=== PATIENT | female | born 1995 | race Caucasian/White ===

== ENCOUNTER 2020-12-22 14:12 | Emergency (ER) | payer SELFPAY ==
[2020-12-22 15:31] LABS: Absolute Lymphocytes (CBC) 2.4 K/uL (0.7-4.9); Basophils % 0.3 % (0-1.3); Hematocrit 41.7 % (36.0-45.0); Lymphocytes % 31.7 % (15.3-44.8); MPV 9.2 fL (7.6-11.3); RBC Red Blood Cell Count 4.66 M/uL (3.86-4.86)
--- NOTE | 2020-12-22 16:05 | RAD REPORT ---
EXAM DESCRIPTION: US - Transvaginal Study Probe - 12/22/2020 3:05 pm CLINICAL HISTORY: VAGINAL BLEEDING Pelvic pain. COMPARISON: No comparisons FINDINGS: The uterus measures 8.4 cm in long axis. The left ovary measures 4.7 x 1.9 x 2.6 cm with v olume of 12.4 cc. The right ovary was visualized but no measurements were obtained. Both ovaries demo nstrate vascular flow. IUD noted in the uterus. IMPRESSION: IUD in the uterus. Bilateral ovarian blood flow is present.
--- NOTE | 2020-12-22 16:08 | ER ---
Nurse's Notes [facility] Name: Guillermina Marie Age: 25 yrs Sex: Female : 1995 Arrival Date: 12/22/2020 Time: 14:16 Bed 23 Private MD: Diagnosis: Abnormal uterine and vaginal bleeding, unspecified Presentation: 12/22 14:26 Chief complaint: Patient states: IUD placed two weeks ago and for about a week now has vg1 had vaginal bleeding, dark red in color. Also states passing blood clots 'the size of a quarter'. Denies NVD. Pt states has been feeling tired as well. Coronavirus screen: Vaccine status: Patient reports being unvaccinated. Client denies travel out of the [place] in the last 14 days. Ebola Screen: Patient negative for fever greater than or equal to 101.5 degrees Fahrenheit, and additional compatible Ebola Virus Disease symptoms. Initial Sepsis Screen: Does the patient meet any 2 criteria? No. Patient's initial sepsis screen is negative. Does the patient have a suspected source of infection? No. Patient's initial sepsis screen is negative. Risk Assessment: Do you want to hurt yourself or someone else? Patient reports no desire to harm self or others. Onset of symptoms was December 08, 2020. 14:26 Method Of Arrival: Ambulatory vg1 14:26 Acuity: NADIRA 3 vg1 Triage Assessment: 14:30 General: Appears in no apparent distress. uncomfortable, Behavior is calm, cooperative. vg1 Pain: Complains of pain in abdomen. : Reports vaginal bleeding that is with clots, heavy flow dark red. 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 - Social history:: Smoking status: Patient denies any tobacco usage or history of. Screenin:21 Abuse screen: Denies threats or abuse. Denies injuries from another. Nutritional ld1 screening: No deficits noted. Tuberculosis screening: No symptoms or risk factors identified. Fall Risk None identified. Assessment: 14:59 Reassessment: Pt was called to go back to room; pt not in lobby. vg1 15:21 General: Appears in no apparent distress. comfortable, Behavior is calm, cooperative, ld1 appropriate for age. Pain: Denies pain. Neuro: Level of Consciousness is awake, alert, obeys commands, Oriented to person, place, time, situation. Cardiovascular: Capillary refill < 3 seconds Patient's skin is warm and dry. Respiratory: Airway is patent Respiratory effort is even, unlabored, Respiratory pattern is regular, symmetrical. GI: Abdomen is round non-distended. : Reports vaginal bleeding that is with clots, Pt reports IUD placement, expelled a clot the size of a quarter today. EENT: No signs and/or symptoms were reported regarding the EENT system. Derm: No signs and/or symptoms reported regarding the dermatologic system. Musculoskeletal: No signs and/or symptoms reported regarding the musculoskeletal system. 16:47 Reassessment: Patient appears in no apparent distress at this time. Patient and/or iw family updated on plan of care and expected duration. Pain level reassessed. Patient is alert, oriented x 3, equal unlabored respirations, skin warm/dry/pink. Vital Signs: 14:26 BP 117 / 73; Pulse 79; Resp 16; Temp 98.6; Pulse Ox 100% ; Weight 122.47 kg; Height 5 vg1 ft. 2 in. (157.48 cm); Pain 5/10; 15:21 BP 122 / 75; Pulse 82; Resp 17; Pulse Ox 100% on R/A; Pain 0/10; ld1 14:26 Body Mass Index 49.38 (122.47 kg, 157.48 cm) vg1 ED Course: 14:16 Patient arrived in ED. mr 14:22 [facility]aud [facility]C [facility]. kb 14:22 Lew Cisneros MD is Attending Physician. kb 14:29 Triage completed. vg1 14:30 Arm band placed on. vg1 15:05 Transvaginal Study Probe In Process Unspecified. EDMS 15:21 Patient has correct armband on for positive identification. Bed in low position. Call ld1 light in reach. Side rails up X2. Pulse ox on. NIBP on. Door closed. Noise minimized. Warm blanket given. 15:21 CBC with Diff Sent. ld1 15:21 No provider procedures requiring assistance completed. Inserted saline lock: 20 gauge ld1 in right antecubital area, using aseptic technique. Blood collected. 16:48 IV discontinued, intact, bleeding controlled, No redness/swelling at site. Pressure iw dressing applied. Administered Medications: No medications were administered Outcome: 16:08 Discharge ordered by . vaughn 16:48 Discharged to home ambulatory. iw 16:48 Condition: good 16:48 Discharge instructions given to patient, Instructed on discharge instructions, follow up and referral plans. Demonstrated understanding of instructions, follow-up care. 16:48 Patient left the ED. iw Signatures: Dispatcher [employer] EDMS Jade Michaud, LUZ ELENA-C MUD JACK NOZZLE WORKER-Cheyanne Marshall Radha Lovelace, RN RN iw Christen Lay RN RN vg1 Daya Jurado, CORY RN ld1 Corrections: (The following items were deleted from the chart) 14:30 14:29 Allergies: No Known Allergies; vg1 vg1 14:30 14:29 PSHx: None; vg1 vg1
--- NOTE | 2020-12-22 16:08 | EDPHYS ---
Physician Documentation [facility] Name: Guillermina Marie Age: 25 yrs Sex: Female : 1995 Arrival Date: 12/22/2020 Time: 14:16 Bed 23 Private MD: PAULETTE Physician Lew Cisneros HPI: 12/22 15:39 This 25 yrs old Female presents to ER via Ambulatory with complaints of kb Vaginal Bleed -blood clots. 15:39 The patient presents with vaginal bleeding that is moderate, with clots. Onset: The kb symptoms/episode began/occurred 1 week(s) ago. Modifying factors: The symptoms are alleviated by nothing, the symptoms are aggravated by nothing. Associated signs and symptoms: Pertinent positives: vaginal bleeding. Severity of symptoms: At their worst the symptoms were moderate, in the emergency department the symptoms are unchanged. The patient's method of control includes IUD. The patient has not experienced similar symptoms in the past. The patient has been recently seen by a physician:. States she has had an UID in for 2 weeks, started bleeding a week ago. 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 . 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 - Social history:: Smoking status: Patient denies any tobacco usage or history of. ROS: 15:39 Constitutional: Negative for fever, chills, and weight loss. kb 15:39 : Positive for vaginal bleeding. 15:39 All other systems are negative. Exam: 15:39 Constitutional: This is a well developed, well nourished patient who is awake, alert, kb and in no acute distress. Head/Face: Normocephalic, atraumatic. ENT: Moist Mucous membranes Respiratory: Respirations even and unlabored. No increased work of breathing, no retractions or nasal flaring. Abdomen/GI: Soft, non-tender. No distention Skin: Warm, dry with normal turgor. Normal color. MS/ Extremity: Pulses equal, no cyanosis. Neurovascular intact. Full, normal range of motion. Neuro: Awake and alert, GCS 15, oriented to person, place, time, and situation. Moves all extremities. Normal gait. Psych: Awake, alert, with orientation to person, place and time. Behavior, mood, and affect are within normal limits. Vital Signs: 14:26 BP 117 / 73; Pulse 79; Resp 16; Temp 98.6; Pulse Ox 100% ; Weight 122.47 kg; Height 5 vg1 ft. 2 in. (157.48 cm); Pain 5/10; 15:21 BP 122 / 75; Pulse 82; Resp 17; Pulse Ox 100% on R/A; Pain 0/10; ld1 14:26 Body Mass Index 49.38 (122.47 kg, 157.48 cm) vg1 MDM: 14:29 Patient medically screened. kb 15:38 Data reviewed: vital signs, nurses notes. Data interpreted: Pulse oximetry: on room air kb is 100 %. Interpretation: normal. Counseling: I had a detailed discussion with the patient and/or guardian regarding: the historical points, exam findings, and any diagnostic results supporting the discharge/admit diagnosis, lab results, radiology results, the need for outpatient follow up, an OB/Gyne specialist, to return to the emergency department if symptoms worsen or persist or if there are any questions or concerns that arise at home. 12/22 14:29 Order name: CBC with Diff; Complete Time: 15:37 kb 12/22 15:04 Order name: Transvaginal Study Probe; Complete Time: 16:07 EDMS Administered Medications: No medications were administered Disposition: 12/23 11:37 Co-signature as Attending Physician, Lew Cisneros MD I agree with the assessment and rebekah plan of care. Disposition Summary: 12/22/20 16:08 Discharge Ordered Location: Home kb Condition: Stable kb Diagnosis - Abnormal uterine and vaginal bleeding, unspecified kb Followup: kb - With: Emergency Department - When: As needed - Reason: Worsening of condition Followup: kb - With: Private Physician - When: 2 - 3 days - Reason: Recheck today's complaints, Continuance of care, Re-evaluation by your physician Discharge Instructions: - Discharge Summary Sheet kb - Abnormal Uterine Bleeding, [id number] kb Forms: - Medication Reconciliation Form kb - Thank You Letter kb - Antibiotic Education kb - Prescription Opioid Use kb Signatures: Dispatcher [employer] EDMS Jade Michaud, RN OBGYN-Iraida LAGUNA-Lew Jordan MD MD cha Garcia, Victoria, RN RN vg1 Corrections: (The following items were deleted from the chart) 12/22 14:30 14:29 Allergies: No Known Allergies; vg1 vg1 14:30 14:29 PSHx: None; vg1 vg1 15:04 14:30 Transvaginal Ob+US.RAD.BRZ ordered. EDMS EDMS
[2020-12-22 16:56] VITALS: TEMP 98.6; O2SAT 100
[2020-12-22 16:58] VITALS: BP 122/75
--- OUTSIDE RECORDS SUMMARY | 2021-01-03 06:13 | XMS REPORT | Continuity of Care Document ---
:[address] [facility] t Address [address] [place] [address] Care Team Providers Name Role Phone Dagoberto Kaur Attending Clinician Unavailable KNOW Admitting Clinician Unavailable Payers Payer Name Policy Type Policy Number Effective Date Expiration Date S ource Problems This patient has no known problems. Allergies, Adverse Reactions, Alerts Allergy Allergy Status Severity Reaction(s) Onset Inactive Treating Comm ents Source Name Type Date Date Clinician No Known DA Active U [facility] 05-24 Clear s 00:00: [address] No Known DA Active U [facility] Allergie - Clear s 00:00: [address] Medications This patient has no known medications. Procedures This patient has no known procedures. Encounters Start End Encounter Admission Attending Care Care Encounter Source Date/Time Date/Time Type Type Clinicians Facility Department ID 2019-02-26 Inpatient [facility] [id number] [facility] 12:12:00 [facility] [place] 2020-01-08 2020-01-08 Emergency E [facility] [id number] [facility] 08:09:00 08:09:00 2019-02-27 2019-02-27 Outpatient CATALINA Kaur [id number] [facility] 00:35:00 00:35:00 [place] [facility] Results Test Description Test Time Test Comments Results Result Sourc e Comments - XR CHEST 2 V 2019-02-26 Name: MARI NARAYANAN 13:37:00 KALEIGH [facility] : 1995 Age/S: 23 / F [address] Unit #: [id number] Loc: [place] [address] Phys: Laney Kaur MD Acct: [id number] Dis Date: Status: REG ER PHONE #: [phone] Exam Date: 02/26/2019 1325 FAX #: Reason: cough EXAMS: CPT: [id number] XR CHEST 2 V [id number] Fluoro Time: DAP (Gy m2): Air Kerma (mGy): Location code: R 16 Chest two views frontal and lateral Indication: cough. Comparison: None Findings: The heart and mediastinum are not remarkable. Costophrenic angles are clear. Lungs are clear. Bone is unremarkable for age. Impression: 1. No radiographic evidence of acute cardiopulmonary disease. at 1337 Reported and signed by: Dmitri Rodriguez M.D. CC: Bárbara Middleton KITCHEN WORK SUPERVISOR; Laney Kaur MD PAGE 1 Signed Report Name: MARI NARAYANAN [facility] : 1995 Age/S: 23 / F [facility] Unit #: [id number] Loc: [place] [address] Phys: Laney Kaur MD Acct: [id number] Dis Date: Status: REG ER PHONE #: [phone] Exam Date: 02/26/2019 1320 FAX #: Reason: cough EXAMS: CPT: [id number] XR CHEST 2 V [id number] Fluoro Time: DAP (Gy m2): Air Kerma (mGy): <Continued> Technologist: RT Melonie(R) Trnscb Date/Time: 02/26/2019 (1337) [email or web address] Orig Print D/T: S: 02/26/2019 (1340) PAGE 2 Signed Report
== END 2020-12-22 16:48 | disposition home or self-care (01) ==
LOC: ER 14:12
DX: N93.9 Abnormal uterine and vaginal bleeding, unspecified (principal); Z88.0 Allergy status to penicillin; Z88.1 Allergy status to other antibiotic agents
CPT/HCPCS: 36415; 76830; 85025; 99284

== ENCOUNTER 2021-11-20 08:53 | Emergency (ER) | payer SELFPAY ==
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
--- NOTE | 2021-11-20 09:46 | EDPHYS ---
Physician Documentation [facility] Name: Guillermina Marie Age: 26 yrs Sex: Female : 1995 Arrival Date: 11/20/2021 Time: 08:55 Bed 12 Private MD: ED Physician Kobe Gonzales HPI: 11/20 09:43 This 26 yrs old Female presents to ER via Ambulatory with complaints of Ear jl9 Pain. 09:43 The patient presents with pain, that is acute. The complaints affect the left ear. jl9 Onset: The symptoms/episode began/occurred yesterday. Modifying factors: The symptoms are alleviated by nothing, the symptoms are aggravated by nothing. Associated signs and symptoms: The patient has no apparent associated signs or symptoms. Severity of symptoms: Pain is currently a 4 / 10. The patient has not experienced similar symptoms in the past. 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 - Social history:: Smoking status: Patient denies any tobacco usage or history of. ROS: 09:43 Constitutional: Negative for fever, chills, and weight loss, Eyes: Negative for injury, jl9 pain, redness, and discharge. 09:43 Neck: Negative for injury, pain, and swelling, Cardiovascular: Negative for chest pain, palpitations, and edema, Respiratory: Negative for shortness of breath, cough, wheezing, and pleuritic chest pain, Abdomen/GI: Negative for abdominal pain, nausea, vomiting, diarrhea, and constipation, Back: Negative for injury and pain, : Negative for injury, bleeding, discharge, and swelling, MS/Extremity: Negative for injury and deformity, Skin: Negative for injury, rash, and discoloration, Neuro: Negative for headache, weakness, numbness, tingling, and seizure, Psych: Negative for depression, anxiety, suicide ideation, homicidal ideation, and hallucinations, Allergy/Immunology: Negative for hives, rash, and allergies, Endocrine: Negative for neck swelling, polydipsia, polyuria, polyphagia, and marked weight changes, Hematologic/Lymphatic: Negative for swollen nodes, abnormal bleeding, and unusual bruising. 09:43 ENT: Positive for ear pain. Exam: 09:44 Constitutional: This is a well developed, well nourished patient who is awake, alert, jl9 and in no acute distress. Head/Face: Normocephalic, atraumatic. Eyes: Pupils equal round and reactive to light, extra-ocular motions intact. Lids and lashes normal. Conjunctiva and sclera are non-icteric and not injected. Cornea within normal limits. Periorbital areas with no swelling, redness, or edema. 09:44 Neck: Trachea midline, no thyromegaly or masses palpated, and no cervical lymphadenopathy. Supple, full range of motion without nuchal rigidity, or vertebral point tenderness. No Meningismus. Chest/axilla: Normal chest wall appearance and motion. Nontender with no deformity. No lesions are appreciated. Cardiovascular: Regular rate and rhythm with a normal S1 and S2. No gallops, murmurs, or rubs. Normal PMI, no JVD. No pulse deficits. Respiratory: Lungs have equal breath sounds bilaterally, clear to auscultation and percussion. No rales, rhonchi or wheezes noted. No increased work of breathing, no retractions or nasal flaring. Abdomen/GI: Soft, non-tender, with normal bowel sounds. No distension or tympany. No guarding or rebound. No evidence of tenderness throughout. Back: No spinal tenderness. No costovertebral tenderness. Full range of motion. Skin: Warm, dry with normal turgor. Normal color with no rashes, no lesions, and no evidence of cellulitis. MS/ Extremity: Pulses equal, no cyanosis. Neurovascular intact. Full, normal range of motion. Neuro: Awake and alert, GCS 15, oriented to person, place, time, and situation. Cranial nerves II-XII grossly intact. Motor strength 5/5 in all extremities. Sensory grossly intact. Cerebellar exam normal. Normal gait. Psych: Awake, alert, with orientation to person, place and time. Behavior, mood, and affect are within normal limits. 09:44 ENT: External ear(s): are unremarkable, Ear canal(s): are normal, TM's: erythema, that is moderate, on the left, Nose: is normal, Mouth: is normal. Vital Signs: 09:20 Pulse 70; Resp 17; Temp 98.5(O); Pulse Ox 100% ; Weight 115.67 kg; Height 5 ft. 2 in. ss (157.48 cm); Pain 6/10; 09:23 BP 116 / 76; Pulse 81; ss 09:20 Body Mass Index 46.64 (115.67 kg, 157.48 cm) MDM: 09:25 Patient medically screened. jl9 09:45 Data reviewed: vital signs, nurses notes. Counseling: I had a detailed discussion with jl9 the patient and/or guardian regarding: the historical points, exam findings, and any diagnostic results supporting the discharge/admit diagnosis, radiology results, the need for outpatient follow up, to return to the emergency department if symptoms worsen or persist or if there are any questions or concerns that arise at home. Administered Medications: 09:59 Drug: Dexamethasone 10 mg Route: IM; Site: right deltoid; 10:14 Follow up: Response: No adverse reaction; Medication administered at discharge. 09:59 Drug: Ibuprofen 800 mg Route: PO; ss 10:15 Follow up: Response: No adverse reaction; Medication administered at discharge. Disposition: 11:25 Co-signature as Attending Physician, Kobe Gonzales MD I agree with the assessment and kdr plan of care. Disposition Summary: 11/20/21 09:46 Discharge Ordered Location: Home jl9 Condition: Stable jl9 Diagnosis - Acute serous otitis media, left ear jl9 Followup: jl9 - With: Private Physician - When: 1 - 2 days - Reason: Recheck today's complaints, Continuance of care, Re-evaluation by your physician Discharge Instructions: - Discharge Summary Sheet ss - Otitis Media, Adult, Oyys-vy-Smet jl9 Forms: - Work release form ss - Medication Reconciliation Form jl9 - Thank You Letter jl9 - Antibiotic Education jl9 - Prescription Opioid Use jl9 Prescriptions: - azithromycin 250 mg Oral tablet - take 2 tablet by ORAL route once daily for 1 day then 1 tablet (250 mg) by oral jl9 route once daily for 4 days; 6 tablet; Refills: 0, Product Selection Permitted Signatures: Kobe Gonzales MD MD [facility] Kate Figueroa RN RN Zak Uribe 9
--- NOTE | 2021-11-20 09:46 | ER ---
Nurse's Notes [facility] Name: Guillermina Marie Age: 26 yrs Sex: Female : 1995 Arrival Date: 11/20/2021 Time: 08:55 Bed 12 Private MD: Diagnosis: Acute serous otitis media, left ear Presentation: 11/20 09:20 Chief complaint: Patient states: L ear pain that began yesterday and now is radiating ss towards R ear. Coronavirus screen: Client denies travel out of the [place] in the last 14 days. Ebola Screen: Patient denies exposure to infectious person. Patient denies travel to an Ebola-affected area in the 21 days before illness onset. Initial Sepsis Screen: Does the patient meet any 2 criteria? No. Patient's initial sepsis screen is negative. Does the patient have a suspected source of infection? No. Patient's initial sepsis screen is negative. Risk Assessment: Do you want to hurt yourself or someone else? Patient reports no desire to harm self or others. Onset of symptoms was November 20, 2021. 09:20 Method Of Arrival: Ambulatory ss 09:20 Acuity: NADIRA 3 ss Triage Assessment: 09:21 General: Appears uncomfortable, Behavior is calm, cooperative, Denies fever, feeling ss ill, fatigue. Pain: Complains of pain in L \T\ R ear Pain currently is 6 out of 10 on a pain scale. Quality of pain is described as aching, Pain began 1 day ago. Is continuous. Neuro: Level of Consciousness is awake, alert, obeys commands, Oriented to person, place, time, situation. Cardiovascular: Capillary refill < 3 seconds is brisk in bilateral fingers Patient's skin is warm and dry. Respiratory: Airway is patent Respiratory effort is even, unlabored, Respiratory pattern is regular. GI: No signs and/or symptoms were reported involving the gastrointestinal system. Derm: Skin is intact, is healthy with good turgor, Skin is dry, Skin is pink, warm \T\ dry. normal. Musculoskeletal: Circulation, motion, and sensation intact. Range of motion: intact in all extremities, Swelling absent. 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 - Social history:: Smoking status: Patient denies any tobacco usage or history of. Screenin:21 Abuse screen: Denies threats or abuse. Denies injuries from another. Nutritional ss screening: No deficits noted. Nutritional screening: No deficits noted. Tuberculosis screening: Never had TB. Fall Risk None identified. Assessment: :21 Reassessment: SEE TRIAGE ASSESSMENT. ss 10:12 Reassessment: Patient appears in no apparent distress at this time. Patient and/or ss family updated on plan of care and expected duration. Pain level reassessed. Patient is alert, oriented x 3, equal unlabored respirations, skin warm/dry/pink. Vital Signs: 09:20 Pulse 70; Resp 17; Temp 98.5(O); Pulse Ox 100% ; Weight 115.67 kg; Height 5 ft. 2 in. ss (157.48 cm); Pain 6/10; 09:23 BP 116 / 76; Pulse 81; ss 09:20 Body Mass Index 46.64 (115.67 kg, 157.48 cm) ss ED Course: 08:55 Patient arrived in ED. mr 09:08 [facility] jl9 09:08 Kobe Gonzales MD is Attending Physician. jl9 09:21 Triage completed. ss 09:21 Arm band placed on left wrist. ss 09:21 Patient has correct armband on for positive identification. ss 09:52 Kate Figueroa, CORY is Primary Nurse. ss 10:15 No provider procedures requiring assistance completed. Patient did not have IV access ss during this emergency room visit. Administered Medications: 09:59 Drug: Dexamethasone 10 mg Route: IM; Site: right deltoid; ss 10:14 Follow up: Response: No adverse reaction; Medication administered at discharge. ss 09:59 Drug: Ibuprofen 800 mg Route: PO; ss 10:15 Follow up: Response: No adverse reaction; Medication administered at discharge. ss Medication: 09:21 VIS not applicable for this client. ss Outcome: 09:46 Discharge ordered by . jl9 10:17 Discharged to home ambulatory. ss 10:17 Condition: good 10:17 Discharge instructions given to patient, Instructed on discharge instructions, follow up and referral plans. medication usage, Demonstrated understanding of instructions, follow-up care, medications, Prescriptions given X 1. 10:18 Patient left the ED. ss Signatures: Cheyanne Finney Shelby, RN RN Zak Cox jl9
[2021-11-20] MEDS ORDERED: IBUPROFEN 400 MG TAB ONE (09:54)
[2021-11-20] MEDS ORDERED: dexAMETHasone 10 MG/ML VIAL ONE (09:54)
[2021-11-21 01:46] VITALS: TEMP 98.5; O2SAT 100
[2021-11-21 01:50] VITALS: BP 116/76
== END 2021-11-20 10:18 | disposition home or self-care (01) ==
LOC: ER 08:53
DX: H65.02 Acute serous otitis media, left ear (principal)
CPT/HCPCS: 96372; 99283; J1100

== ENCOUNTER 2022-01-07 09:31 | Emergency (ER) | payer OTHER ==
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
[2022-01-07 10:07] LABS: Urine Blood Negative (Negative); Urine Glucose Negative (Negative); Urine Protein Negative (Negative); Urine Specific Gravity >=1.030 (1.005-1.030); Urine pH 5.5 (5.0-7.0)
[2022-01-07] MEDS ORDERED: NA CHLORIDE 0.9% 1,000 ML ONE (10:19)
[2022-01-07 10:25] LABS: Hematocrit 40.3 % (36.0-45.0); Lymphocytes % 35.2 % (15.3-44.8); MCV 89.6 fL (80-100); MPV 8.8 fL (7.6-11.3)
[2022-01-07 10:42] LABS: Potassium 3.7 mmol/L (3.5-5.1)
--- NOTE | 2022-01-07 11:05 | RAD REPORT ---
EXAM DESCRIPTION: US - Transvaginal OB - 01/07/2022 10:48 am CLINICAL HISTORY: ABD CRAMPING, COMPARISON: No comparisons FINDINGS: There is thickening of the endometrial stripe with a tiny cystic structure present. Conceivably, this could be a very early gestational sac. The maternal adnexa and ovaries are within normal limits. Normal Doppler blood flow was demonstrated to both ovaries. IMPRESSION: Thickened endometrial stripe with a very small cystic structure in the endometrial canal . This could potentially be a very early gestational sac. Advise correlation with HCG level for furth er evaluation. Interval follow-up pelvic sonography would also be suggested in 10-12 days to monitor development.
--- NOTE | 2022-01-07 11:31 | EDPHYS ---
Physician Documentation [facility] Name: Guillermina Marie Age: 26 yrs Sex: Female : 1995 Arrival Date: 01/07/2022 Time: 09:34 Bed 13 Private MD: ED Physician Lew Cisneros HPI: 01/07 14:10 This 26 yrs old Female presents to ER via Ambulatory with complaints of , kb Abdominal Cramping. 14:10 The patient presents to the emergency department with abdominal pain, described as kb crampy. course: care: none, Leakage of Fluid: none appreciated, Ultrasound: the patient has not had an ultrasound. Previous pregnancies: in previous pregnancies patient has had. Associated signs and symptoms: Pertinent positives: cramping. The patient has not experienced similar symptoms in the past. The patient has not recently seen a physician. Pt reports she recently had a positive test and is having intermittent cramping so she wanted to get checked. . 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 - Social history:: Smoking status: Patient denies any tobacco usage or history of. ROS: 14:09 Constitutional: Negative for fever, chills, and weight loss. kb 14:09 Abdomen/GI: Positive for abdominal cramps. 14:09 All other systems are negative. Exam: 14:10 Constitutional: This is a well developed, well nourished patient who is awake, alert, kb and in no acute distress. Head/Face: Normocephalic, atraumatic. ENT: Moist Mucous membranes Cardiovascular: Regular rate and rhythm with a normal S1 and S2. No gallops, murmurs, or rubs. No pulse deficits. Respiratory: Respirations even and unlabored. No increased work of breathing. Talking in full sentences Abdomen/GI: Soft, non-tender. No distention Skin: Warm, dry with normal turgor. Normal color. MS/ Extremity: Pulses equal, no cyanosis. Neurovascular intact. Full, normal range of motion. Neuro: Awake and alert, GCS 15, oriented to person, place, time, and situation. Moves all extremities. Normal gait. Vital Signs: 09:52 BP 137 / 96; Pulse 95; Resp 17; Temp 98.4; Pulse Ox 98% on R/A; Weight 122.47 kg; ll1 Height 5 ft. 2 in. (157.48 cm); Pain 5/10; 09:52 Body Mass Index 49.38 (122.47 kg, 157.48 cm) ll1 MDM: 09:36 Patient medically screened. [facility] 14:09 Data reviewed: vital signs, nurses notes. Data interpreted: Pulse oximetry: on room air kb is 98 %. Interpretation: normal. Counseling: I had a detailed discussion with the patient and/or guardian regarding: the historical points, exam findings, and any diagnostic results supporting the discharge/admit diagnosis, lab results, radiology results, the need for outpatient follow up, an OB/Gyne specialist, to return to the emergency department if symptoms worsen or persist or if there are any questions or concerns that arise at home. 01/07 09:36 Order name: Abo/rh Typing; Complete Time: 11:04 [facility] 01/07 09:36 Order name: Basic Metabolic Panel; Complete Time: 10:51 [facility] 01/07 09:36 Order name: CBC with Diff; Complete Time: 10:51 [facility] 01/07 09:36 Order name: Quantitative Hcg; Complete Time: 10:51 [facility] 01/07 10:07 Order name: Urine Dipstick-Ancillary; Complete Time: 10:18 EDMS 01/07 10:09 Order name: Urine --Ancillary (enter results); Complete Time: 10:18 eb 01/07 09:36 Order name: US Transvaginal Ob; Complete Time: 11:10 [facility] 01/07 09:36 Order name: IV Saline Lock; Complete Time: 10:07 [facility] 01/07 09:36 Order name: Labs collected and sent; Complete Time: 10:07 [facility] 01/07 09:36 Order name: NPO; Complete Time: 09:54 [facility] 01/07 09:36 Order name: Urine Dipstick-Ancillary (obtain specimen); Complete Time: 10: [facility] 01/07 09:36 Order name: Urine Test (obtain specimen); Complete Time: 10: [facility] 01/07 11:11 Order name: ABO/RH no charge; Complete Time: : EDMS Administered Medications: 10:56 Drug: NS 0.9% 1000 ml Route: IV; Rate: 1 bolus; Site: left antecubital; ll1 11:43 Follow up: Response: No adverse reaction; IV Status: Completed infusion; IV Intake: ll1 400ml Disposition Summary: 01/07/22 11:31 Discharge Ordered Location: Home kb Condition: Stable kb Diagnosis - Less than 8 weeks gestation of kb Followup: kb - With: Emergency Department - When: As needed - Reason: Worsening of condition Followup: kb - With: Private Physician - When: 2 - 3 days - Reason: Recheck today's complaints, Continuance of care, Re-evaluation by your physician Discharge Instructions: - First Trimester of , [id number]-Jwgo kb - Discharge Summary Sheet [facility] Forms: - Medication Reconciliation Form kb - Thank You Letter kb - Antibiotic Education kb - Prescription Opioid Use kb - Work release form [facility] Addendum: 01/09/2022 08:29 Co-signature as Attending Physician, Lew Cisneros MD I agree with the assessment and c sarabia plan of care. Signatures: Dispatcher [employer] Jade Farris, PRE SCHOOL MANAGER-C PRE SCHOOL MANAGER-Lew Jordan MD MD cha Lewis, Lynsay, RN RN ll1
--- NOTE | 2022-01-07 11:31 | ER ---
Nurse's Notes [facility] Name: Guillermina Marie Age: 26 yrs Sex: Female : 1995 Arrival Date: 01/07/2022 Time: 09:34 Bed 13 Private MD: Diagnosis: Less than 8 weeks gestation of Presentation: 01/07 09:52 Chief complaint: Patient states: Positive test at home with abd cramping that ll1 began yesterday. LMP: 11/28/21 G2, P1. Coronavirus screen: Vaccine status: Patient reports being unvaccinated. Client denies travel out of the [place] in the last 14 days. At this time, the client does not indicate any symptoms associated with coronavirus-19. Ebola Screen: Patient denies travel to an Ebola-affected area in the 21 days before illness onset. Initial Sepsis Screen: Does the patient meet any 2 criteria? No. Patient's initial sepsis screen is negative. Does the patient have a suspected source of infection? Yes: Acute abdominal pain. Risk Assessment: Do you want to hurt yourself or someone else? Patient reports no desire to harm self or others. Onset of symptoms was January 06, 2022. 09:52 Method Of Arrival: Ambulatory ll1 09:52 Acuity: NADIRA 3 ll1 Triage Assessment: 09:54 General: Appears in no apparent distress. Behavior is cooperative, appropriate for age. ll1 Pain: Complains of pain in pelvis Pain currently is 5 out of 10 on a pain scale. Quality of pain is described as crampy. Neuro: No deficits noted. Cardiovascular: No deficits noted. GI: Reports cramping. : Reports pain in bilateral lower quadrant(s). 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 - Social history:: Smoking status: Patient denies any tobacco usage or history of. Screenin:24 Abuse screen: Denies threats or abuse. Nutritional screening: No deficits noted. ll1 Tuberculosis screening: No symptoms or risk factors identified. Fall Risk IV access (20 points). Total Dai Fall Scale indicates No Risk (0-24 pts). Assessment: 10:24 Reassessment: No changes from previously documented assessment. Patient and/or family ll1 updated on plan of care and expected duration. Pain level reassessed. Patient is alert, oriented x 3, equal unlabored respirations, skin warm/dry/pink. 10:56 Reassessment: No changes from previously documented assessment. Patient and/or family ll1 updated on plan of care and expected duration. Pain level reassessed. Patient is alert, oriented x 3, equal unlabored respirations, skin warm/dry/pink. 11:43 Reassessment: No changes from previously documented assessment. Patient and/or family ll1 updated on plan of care and expected duration. Pain level reassessed. Patient is alert, oriented x 3, equal unlabored respirations, skin warm/dry/pink. 11:44 GI: Bowel sounds present X 4 quads. Abd is soft and non tender X 4 quads. ll1 Vital Signs: 09:52 BP 137 / 96; Pulse 95; Resp 17; Temp 98.4; Pulse Ox 98% on R/A; Weight 122.47 kg; ll1 Height 5 ft. 2 in. (157.48 cm); Pain 5/10; 09:52 Body Mass Index 49.38 (122.47 kg, 157.48 cm) ll1 ED Course: 09:34 Patient arrived in ED. mr 09:35 Lew Cisneros MD is Attending Physician. rebekah 09:44 [facility]aud [facility]-C [facility] kb 09:45 Arm band placed on Patient placed in an exam room, on a stretcher. ll1 09:53 Triage completed. ll1 10:08 Joshua Scott, CORY is Primary Nurse. ll1 10:10 Inserted saline lock: 20 gauge in left antecubital area, using aseptic technique. Blood ll1 collected. 10:25 Patient has correct armband on for positive identification. Bed in low position. ll1 Cardiac monitoring not applicable on this patient. 10:50 US Transvaginal Ob In Process Unspecified. EDMS 11:43 No provider procedures requiring assistance completed. IV discontinued, intact, ll1 bleeding controlled, No redness/swelling at site. Pressure dressing applied. Administered Medications: 10:56 Drug: NS 0.9% 1000 ml Route: IV; Rate: 1 bolus; Site: left antecubital; ll1 11:43 Follow up: Response: No adverse reaction; IV Status: Completed infusion; IV Intake: ll1 400ml Medication: 10:25 VIS not applicable for this client. ll1 Intake: 11:43 IV: 400ml; Total: 400ml. ll1 Outcome: 11:31 Discharge ordered by . kb 11:44 Discharged to home ambulatory. ll1 11:44 Condition: stable 11:44 Discharge instructions given to patient, Instructed on discharge instructions, follow up and referral plans. Demonstrated understanding of instructions, follow-up care. 11:44 Patient left the ED. 1 Signatures: Dispatcher [employer] EDJade Ohara, COLLISION MECHANIC-C COLLISION MECHANIC-CkLew Navarro MD MD cha Rivera, Mary mr Lewis, Lynsay RN RN 1
[2022-01-07 12:12] VITALS: BP 137/96; TEMP 98.4; O2SAT 98
== END 2022-01-07 11:44 | disposition home or self-care (01) ==
LOC: ER 09:31
DX: O26.891 Other specified pregnancy related conditions, first trimester (principal); Z3A.01 Less than 8 weeks gestation of pregnancy; R10.9 Unspecified abdominal pain; Z88.0 Allergy status to penicillin; Z88.1 Allergy status to other antibiotic agents
CPT/HCPCS: 85025; 80048; 36415; 86900; 81025; 86901; 84702; 81003; 76817; 96360; 99284; J7030

== ENCOUNTER 2022-01-09 10:11 | Emergency (ER) | payer OTHER, SELFPAY ==
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
[2022-01-09] MEDS ORDERED: ACETAMINOPHEN 325 MG TABLET ONE (10:44)
[2022-01-09 11:40] LABS: SARS-COV-2 RT PCR NEGATIVE (NEGATIVE)
--- NOTE | 2022-01-09 11:46 | ER ---
Nurse's Notes [facility] Name: Guillerimna Marie Age: 26 yrs Sex: Female : 1995 Arrival Date: 01/09/2022 Time: 10:13 Bed 13 [facility] MD: Diagnosis: Influenza due to identified novel influenza A virus with other respiratory manifestations Presentation: 01/09 10:45 Chief complaint: Patient states: flu symptoms since this morning. Coronavirus screen: ko1 At this time, the client does not indicate any symptoms associated with coronavirus-19. Ebola Screen: No symptoms or risks identified at this time. Initial Sepsis Screen: Does the patient meet any 2 criteria? No. Patient's initial sepsis screen is negative. Does the patient have a suspected source of infection? No. Patient's initial sepsis screen is negative. Risk Assessment: Do you want to hurt yourself or someone else? Patient reports no desire to harm self or others. Onset of symptoms was January 09, 2022. 10:45 Method Of Arrival: Ambulatory ko1 10:45 Acuity: NADIRA 4 ko1 Triage Assessment: 10:59 General: Appears in no apparent distress. comfortable, Behavior is calm, cooperative, ko1 appropriate for age. Pain: Denies pain. 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 - Social history:: Smoking status: Patient denies any tobacco usage or history of. Screenin:45 Abuse screen: Denies threats or abuse. Denies injuries from another. Nutritional ko1 screening: No deficits noted. Tuberculosis screening: No symptoms or risk factors identified. Fall Risk None identified. Assessment: 10:45 General: Appears in no apparent distress. comfortable, Behavior is calm, cooperative, ko1 appropriate for age. Pain: Denies pain. Neuro: No deficits noted. Cardiovascular: No deficits noted. Respiratory: Reports cough that is non-productive, pain with cough since this morning. Hurts in her back. GI: No deficits noted. : No deficits noted. EENT: Parent/caregiver reports the patient having nasal congestion since today. Derm: No deficits noted. Musculoskeletal: No deficits noted. Vital Signs: 10:45 BP 118 / 69; Pulse 92; Resp 22; Temp 99.1(O); Pulse Ox 99% on R/A; Weight 122.47 kg; ko1 Height 5 ft. 2 in. (157.48 cm); Pain 0/10; 10:45 BP 124 / 72; Pulse 89; Pulse Ox 100% on R/A; ko1 11:52 BP 128 / 74; Pulse 87; Temp 98.9(O); Pulse Ox 100% on R/A; ko1 10:45 Body Mass Index 49.38 (122.47 kg, 157.48 cm) ko1 ED Course: 10:13 Patient arrived in ED. as 10:13 Latoya Maher FNP is [facility] 10:13 Markell Cedeno MD is Attending Physician. [facility] 10:21 Bre Daly, RN is Primary Nurse. ko1 10:41 Strep Sent. ko1 10:41 COVID-19/FLU A+B Sent. ko1 10:41 HCG-Quantitative Sent. ko1 10:45 No provider procedures requiring assistance completed. Initial lab(s) drawn, by hi, ko1 sent to lab. 10:45 Patient has correct armband on for positive identification. Bed in low position. Call ko1 light in reach. Side rails up X 1. Pulse ox on. NIBP on. Door closed. Noise minimized. Lights dimmed. Warm blanket given. 10:59 Triage completed. ko1 10:59 Arm band placed on right wrist. ko1 11:52 Patient did not have IV access during this emergency room visit. ko1 Administered Medications: 10:45 Drug: Tylenol 650 mg Route: PO; ko1 Medication: 10:45 VIS not applicable for this client. ko1 Outcome: 11:46 Discharge ordered by . [facility] 11:52 Discharged to home ambulatory. ko1 11:52 Condition: good 11:52 Discharge instructions given to patient, Instructed on discharge instructions, follow up and referral plans. medication usage, Demonstrated understanding of instructions, follow-up care, medications, Prescriptions given X 1. 11:58 Patient left the ED. ko1 Signatures: Lauren Chandra as Latoya Maher FNP PROGRAM MANUFACTURING LEADER jh7 Bre Daly, RN RN ko1
--- NOTE | 2022-01-09 11:46 | EDPHYS ---
Physician Documentation [facility] Name: Guillermina Marie Age: 26 yrs Sex: Female : 1995 Arrival Date: 01/09/2022 Time: 10:13 Bed 13 Private MD: ED Physician Markell Cedeno HPI: 01/09 10:15 This 26 yrs old Female presents to ER via Unassigned with complaints of Flu Symptoms, jh7 hcg recheck. 10:15 Onset: The symptoms/episode began/occurred last night. Associated signs and symptoms: jh7 Pertinent positives: cough, sore throat, Body aches, chills. Patient reports that her son recently tested positive for strep and flu, and is concerned she is having the same symptoms. Complains of sore throat, body aches, cough, and chills. Also states that her OB would like her to recheck her hCG level. States that she is unsure how far along she is.. 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 - Social history:: Smoking status: Patient denies any tobacco usage or history of. ROS: 10:15 Eyes: Negative for injury, pain, redness, and discharge, Neck: Negative for injury, jh7 pain, and swelling, Cardiovascular: Negative for chest pain, palpitations, and edema, Abdomen/GI: Negative for abdominal pain, nausea, vomiting, diarrhea, and constipation, Back: Negative for injury and pain, MS/Extremity: Negative for injury and deformity, Skin: Negative for injury, rash, and discoloration, Neuro: Negative for headache, weakness, numbness, tingling, and seizure. 10:15 Constitutional: Positive for body aches, chills. 10:15 ENT: Positive for sore throat. 10:15 Respiratory: Positive for cough, Negative for shortness of breath, wheezing. 10:15 All other systems are negative. Exam: 10:15 Constitutional: This is a well developed, well nourished patient who is awake, alert, jh7 and in no acute distress. Head/Face: Normocephalic, atraumatic. 10:15 Neck: Trachea midline, no thyromegaly or masses palpated, and no cervical lymphadenopathy. Supple, full range of motion without nuchal rigidity, or vertebral point tenderness. No Meningismus. Cardiovascular: Regular rate and rhythm with a normal S1 and S2. No gallops, murmurs, or rubs. Normal PMI, no JVD. No pulse deficits. Respiratory: Lungs have equal breath sounds bilaterally, clear to auscultation and percussion. No rales, rhonchi or wheezes noted. No increased work of breathing, no retractions or nasal flaring. Abdomen/GI: Soft, non-tender, with normal bowel sounds. No distension or tympany. No guarding or rebound. No evidence of tenderness throughout. Back: No spinal tenderness. No costovertebral tenderness. Full range of motion. Skin: Warm, dry with normal turgor. Normal color with no rashes, no lesions, and no evidence of cellulitis. MS/ Extremity: Pulses equal, no cyanosis. Neurovascular intact. Full, normal range of motion. Neuro: Awake and alert, GCS 15, oriented to person, place, time, and situation. Motor strength 5/5 in all extremities. Sensory grossly intact. Normal gait. 10:15 ENT: TM's: are normal, Nose: is normal, Posterior pharynx: Postnasal drainage. Vital Signs: 10:45 BP 118 / 69; Pulse 92; Resp 22; Temp 99.1(O); Pulse Ox 99% on R/A; Weight 122.47 kg; ko1 Height 5 ft. 2 in. (157.48 cm); Pain 0/10; 10:45 BP 124 / 72; Pulse 89; Pulse Ox 100% on R/A; ko1 11:52 BP 128 / 74; Pulse 87; Temp 98.9(O); Pulse Ox 100% on R/A; ko1 10:45 Body Mass Index 49.38 (122.47 kg, 157.48 cm) ko1 MDM: 10:13 Patient medically screened. [facility] 11:50 Differential diagnosis: viral Infection, URI, Streptococcal pharyngitis, COVID. Data [facility] reviewed: vital signs, nurses notes. Data reviewed: lab test result(s), Beta HCG:. Data interpreted: Pulse oximetry: is 100 %. Interpretation: normal. Counseling: I had a detailed discussion with the patient and/or guardian regarding: the historical points, exam findings, and any diagnostic results supporting the discharge/admit diagnosis, to return to the emergency department if symptoms worsen or persist or if there are any questions or concerns that arise at home. 01/09 10:25 Order name: COVID-19/FLU A+B; Complete Time: 11:45 [facility] 01/09 10:25 Order name: Strep; Complete Time: 11: [facility] 01/09 10:25 Order name: HCG-Quantitative; Complete Time: :45 [facility] 01/09 11:07 Order name: Throat Culture EDNH Administered Medications: 10:45 Drug: Tylenol 650 mg Route: PO; ko1 Disposition: 15:42 Co-signature as Attending Physician, Markell Cedeno MD I agree with the assessment and rt plan of care. Disposition Summary: 01/09/22 11:46 Discharge Ordered Location: Home [facility] Problem: new [facility] Symptoms: are unchanged [facility] Condition: Stable [facility] Diagnosis - Influenza due to identified novel influenza A virus with other respiratory [facility] manifestations Followup: [facility] - With: Private Physician - When: 2 - 3 days - Reason: Recheck today's complaints Discharge Instructions: - Discharge Summary Sheet [facility] - Influenza, Adult [facility] Forms: - Medication Reconciliation Form [facility] - Thank You Letter [facility] Prescriptions: - Tamiflu 75 mg Oral Capsule - take 1 capsule by ORAL route every 12 hours for 5 days; 10 capsule; Refills: 0, [facility] Product Selection Permitted Signatures: Dispatcher [employer] Latoya Briones FNP FNP [facility] Bre Daly, RN RN ko1 Markell Cedeno MD MD rt
[2022-01-09 12:05] VITALS: O2SAT 100
[2022-01-09 12:06] VITALS: BP 128/74; TEMP 98.9
== END 2022-01-09 11:58 | disposition home or self-care (01) ==
LOC: ER 10:11
DX: J10.1 Influenza due to other identified influenza virus with other respiratory manifestations (principal); Z20.822 Contact with and (suspected) exposure to COVID-19; Z88.0 Allergy status to penicillin; Z88.1 Allergy status to other antibiotic agents
CPT/HCPCS: 0240U; 36415; 84702; 87070; 87081; 99284

== ENCOUNTER 2022-04-05 15:57 | Emergency (ER) | payer OTHER ==
--- OUTSIDE RECORDS SUMMARY | 2022-04-05 16:01 | XMS REPORT | Continuity of Care Document ---
:1995 Author Organization [facility] t Address [address] [place] [address] Care Team Providers Name Role Phone Asked, No Pcp Primary Care Physician Unavailable ROSAMARIA HARE Attending Clinician Unavailable Eduin Gomez Attending Clinician Unavailable NANETTE READ Attending Clinician Unavailable Laney Kaur Attending Clinician Unavailable KNOW, DOES_NOT Admitting Clinician Unavailable Physician, No Primary or Family Admitting Clinician Unavaila ble Payers Payer Name Policy Type Policy Number Effective Date Expiration Date S cathryn [employer] [place] [id number] 2018 00:00:00 WOMEN Problems This patient has no known problems. Allergies, Adverse Reactions, Alerts Allergy Allergy Status Severity Reaction(s) Onset Inactive Treating Comm ents Source Name Type Date Date Clinician Penicill Propensi Active 2021-02 ins - ty to 2-05 CLASS adverse 00:00: reaction 00 to drug amoxicil DA Active U [facility] 7[facility]01 [facility] No Known DA Active U [facility] All[facility]ie 4 Clear s 00:00: Leigh 00 [facility] No Known DA Active U [facility] Allergie 4- Clear s 00:00: Leigh 00 [facility] NO KNOWN Drug Active Univers ALLERGIE Class ity of S [facility] Social History Social Habit Start Date Stop Date Quantity Comments Source ASSERTION [facility] Alcohol intake 2016-02-07 2016-02-07 Current Religious 00:00:00 00:00:00 non-drinker of Hospital alcohol (finding) Sex Assigned At [birth year] [facility] 00:00[facility]00 00:00:00 Hospital Smoking Status Start Date Stop Date Source Never smoked tobacco [facility] Medications Ordered Filled Start Stop Current Ordering Indication Dosage Frequency Signature Comments Components Source Medication Medication Date Date Medication? Clinician (SIG) Name Name TAKE ONE 2021-02 No (1) 1-30 CAPSULE(S) 00:00: BY MOUTH 00 EVERY TWELVE HOURS FOR 5 DAYS. TAKE 1 2021-02 No TABLET BY 1-15 MOUTH EVERY 00:00: 8 HOURS 00 NEEDED FOR MUSCLE SPASM OR PAIN metronidazo 2019-1 No 1mg le 500 mg 2-16 tablet 00:00: 00 Diflucan 2020-0 No 1mg 150 mg 8-13 tablet 00:00: 00 metronidazo 2020-0 No 1mg le 500 mg 8-13 tablet 00:00: 00 metronidazo 2019-0 No 1mg le 500 mg 9-18 tablet 00:00: 00 No known 2015- No No known Metho di medications 2-17 [...] medication st 18:40: [facility] l Immunizations Ordered Immunization Filled Immunization Date Status Commen ts Source Name Name Hep A, adult 2019-07-25 Completed 00:00:00 Hep B, adult 2019-07-25 Completed 00:00:00 HPV9 2019-07-25 Completed 00:00:00 Hep B, adult 2019-06-25 Completed 00:00:00 Hep A, adult 2019-06-25 Completed 00:00:00 HPV9 2019-06-25 Completed 00:00:00 Vital Signs Vital Name Observation Time Observation Value Comments Source BP Systolic 2022-01-25 10:45:00 111 mm[Hg] BP Diastolic 2022-01-25 10:45:00 76 mm[Hg] Weight Measured 2022-01-25 10:45:00 269.20 pounds Height Measured 2022-01-25 10:45:00 63.10 inches Body Temperature 2022-01-25 10:45:00 98.20 degrees Heart Rate 2022-01-25 10:45:00 83.00 /min Respiratory Rate 2022-01-25 10:45:00 BP Systolic 2020-12-18 08:30:00 128 mm[Hg] BP Diastolic 2020-12-18 08:30:00 85 mm[Hg] Weight Measured 2020-12-18 08:30:00 271.20 pounds Height Measured 2020-12-18 08:30:00 63.10 inches Body Temperature 2020-12-18 08:30:00 97.50 degrees Heart Rate 2020-12-18 08:30:00 74.00 /min Respiratory Rate 2020-12-18 08:30:00 BP Systolic 2020-12-03 11:31:00 134 mm[Hg] BP Diastolic 2020-12-03 11:31:00 85 mm[Hg] Weight Measured 2020-12-03 11:31:00 268.80 pounds Height Measured 2020-12-03 11:31:00 63.10 inches Body Temperature 2020-12-03 11:31:00 98.80 degrees Heart Rate 2020-12-03 11:31:00 90.00 /min Respiratory Rate 2020-12-03 11:31:00 17.00 /min BP Systolic 2020-11-19 09:40:00 134 mm[Hg] BP Diastolic 2020-11-19 09:40:00 86 mm[Hg] Weight Measured 2020-11-19 09:40:00 270.20 pounds Height Measured 2020-11-19 09:40:00 63.10 inches Body Temperature 2020-11-19 09:40:00 98.70 degrees Heart Rate 2020-11-19 09:40:00 89.00 /min Respiratory Rate 2020-11-19 09:40:00 17.00 /min BP Systolic 2020-02-01 15:26:00 134 mm[Hg] BP Diastolic 2020-02-01 15:26:00 89 mm[Hg] Weight Measured 2020-02-01 15:26:00 263.40 pounds Height Measured 2020-02-01 15:26:00 63.10 inches Body Temperature 2020-02-01 15:26:00 Heart Rate 2020-02-01 15:26:00 99.00 /min Respiratory Rate 2020-02-01 15:26:00 18.00 /min BP Systolic 2019-10-04 11:21:00 136 mm[Hg] BP Diastolic 2019-10-04 11:21:00 89 mm[Hg] Weight Measured 2019-10-04 11:21:00 261.00 pounds Height Measured 2019-10-04 11:21:00 63.10 inches Body Temperature 2019-10-04 11:21:00 97.90 degrees Heart Rate 2019-10-04 11:21:00 97.00 /min Respiratory Rate 2019-10-04 11:21:00 18.00 /min Weight Measured 2019-07-31 11:30:00 258.80 pounds Height Measured 2019-07-31 11:30:00 63.10 inches Body Temperature 2019-07-31 11:30:00 99.10 degrees Heart Rate 2019-07-31 11:30:00 81.00 /min Respiratory Rate 2019-07-31 11:30:00 BP Systolic 2019-07-31 11:30:00 135 mm[Hg] BP Diastolic 2019-07-31 11:30:00 88 mm[Hg] BP Systolic 2019-07-25 11:21:00 127 mm[Hg] BP Diastolic 2019-07-25 11:21:00 83 mm[Hg] Weight Measured 2019-07-25 11:21:00 258.30 pounds Height Measured 2019-07-25 11:21:00 63.10 inches Body Temperature 2019-07-25 11:21:00 97.80 degrees Heart Rate 2019-07-25 11:21:00 96.00 /min Respiratory Rate 2019-07-25 11:21:00 18.00 /min BP Systolic 2019-06-25 10:48:00 138 mm[Hg] BP Diastolic 2019-06-25 10:48:00 93 mm[Hg] Weight Measured 2019-06-25 10:48:00 259.80 pounds Height Measured 2019-06-25 10:48:00 63.10 inches Body Temperature 2019-06-25 10:48:00 99.00 degrees Heart Rate 2019-06-25 10:48:00 89.00 /min Respiratory Rate 2019-06-25 10:48:00 BP Systolic 2019-06-21 13:22:00 131 mm[Hg] BP Diastolic 2019-06-21 13:22:00 77 mm[Hg] Weight Measured 2019-06-21 13:22:00 259.80 pounds Height Measured 2019-06-21 13:22:00 63.10 inches Body Temperature 2019-06-21 13:22:00 98.70 degrees Heart Rate 2019-06-21 13:22:00 100.00 /min Respiratory Rate 2019-06-21 13:22:00 Procedures This patient has no known procedures. Plan of Care Planned Activity Planned Date Details Comments Source Goal Plan of Care Note [code = 03665-7] Goal Plan of Care Note [code = 67584-7] Goal Plan of Care Note [code = 51204-5] Goal Plan of Care Note [code = 57050-8] Goal Plan of Care Note [code = 00322-4] Goal Plan of Care Note [code = 71374-8] Goal Plan of Care Note [code = 94509-2] Goal Plan of Care Note [code = 46995-6] Goal Plan of Care Note [code = 92921-0] Goal Plan of Care Note [code = 87955-4] Goal Plan of Care Note [code = 34021-0] Goal Plan of Care Note [code = 98219-0] Goal Plan of Care Note [code = 59938-0] Goal Plan of Care Note [code = 85944-9] Goal Plan of Care Note [code = 67588-7] Goal Plan of Care Note [code = 12002-5] Goal Plan of Care Note [code = 51467-4] Goal Plan of Care Note [code = 54770-7] Goal Plan of Care Note [code = 90064-5] Goal Plan of Care Note [code = 30681-1] Goal Plan of Care Note [code = 04892-0] Encounters Start End Encounter Admission Attending Care Care Encounter Source Date/Time Date/Time Type Type Clinicians Facility Department ID 2019-02-26 Inpatient HCAPM SABIHA [id number] [facility] 12:12:[address] [place] [address] 2022-02-23 2022-02-23 Outpatient SFA [facility] [id number] Eric 13:11:56 13:11:56 0103 F Beto 2022-01-25 2022-01-25 Outpatient SFA [facility] [id number] Eric 10:40:03 10:40:03 1205 F Beto 2022-01-25 2022-01-25 Outpatient [id number] [id number] 00:00:00 00:00:00 [facility]20 [id number] 2022-01-12 2022-01-12 Outpatient Carmen [facility] 1042 [id number] [facility] 08:45:00 08:45[facility] 2021-08-21 2021-08-21 Emergency EM Jason, HCAPM SABIHA [id number] [facility] 09:45:00 11:22:[address] [facility] 2021-08-21 2021-08-21 Emergency EM Jason, HCAPM HCAPM [id number] [facility] 09:45:00 11:22:[id number] [facility] 2020-01-08 2020-01-08 Emergency E READSA ALEXANDRARENETTA [facility]BL [facility] [id number] [facility] 08:09:00 12:14:00 2019-02-27 2019-02-27 Outpatient Natasha, JEYCL [facility] [id number] [facility] 00:35:00 00:35:[address] [place] [address] Results Test Description Test Time Test Comments Results Result Comments Source CULTURE, URINE 2022-02-25 SPECIMEN NUMBER: 08:30:55 [id number] CULTURE, URINE SPECIMEN NUMBER: [id number] SOURCE: URINE REPORT STATUS: FINAL FINAL REPORT: 02/25/2022 >100,000 CFU/ML MIXED UROGENITAL LULU UNLESS OTHERWISE INDICATED, ALL TESTING PERFORMED [facility] [address] [place] [address] GUIDANCE DIRECTOR: NOAM BERNARD M.D. CLIA NUMBER [id number] [facility] [place]. [id number] DRUG ABUSE SCREEN 10 REFLEX CONFIRM 2022-01-27 07:51:39 Test Item Value Reference Range Interpretation Comme nts COMMENTS (test code = TEST NOT PERFORMED Unable to perform testing, 3222) specimen not re ceived.Charges adjusted as rasheeda licable. Note: Validity testin g suggests an altered, adulte rated or compromised spe cimen. Analytic detection may b e affected. Consideration s hould be given to repeat rima sis on a newly acquired specim en or clinical correlation and medication review. AMPHETAMINES (test code = TEST NOT PERFORMED NEGATIVE 3201) BARBITURATES (test code = TEST NOT PERFORMED NEGATIVE 3202) BENZODIAZEPINES (test TEST NOT PERFORMED NEGATIVE code = 3203) CANNABINOIDS (test code = TEST NOT PERFORMED NEGATIVE 3204) COCAINE METABOLITE (test TEST NOT PERFORMED NEGATIVE code = 3205) OPIATES (test code = TEST NOT PERFORMED NEGATIVE 3209) OXYCODONE (test code = TEST NOT PERFORMED NEGATIVE 90394) PHENCYCLIDINE (test code TEST NOT PERFORMED NEGATIVE = 3210) METHADONE (test code = TEST NOT PERFORMED NEGATIVE 3207) BUPRENORPHINE (test code TEST NOT PERFORMED NEGATIVE = 27920) SOURCE (test code = TEST NOT PERFORMED * SEE BELOW FOR THRESHOLDS 159076) AND IMPORTANT M ETHOD NOTES ANALYTE SCREENI NG CUTOFF CONFIRMATORY CUTOFF AMPHETAMINES 500 NG/ML 100 NG/MLBARBITURAT ES 200 NG/ML 100 NG/MLBENZOD IAZEPINES 200 NG/ML 100 NG/ML CANNABINOIDS (THC) 20 NG/ML 15 NG/MLCOCAINE METABOLITES 150 NG/ML 100 NG/MLOPIATE MET ABOLITES 300 NG/ML 100 NG/ML OXYCODONE 100 NG/ML 100 NG/ML PHENCYCLIDINE (PCP) 25 NG/ML 25 NG/MLMETHADONE 300 NG/ML 100 NG/MLBUPRENORPH INE 5 NG/ML 5 NG/ML NOTE: Scr eening methodology is qualitative Enzyme Immunoas say.The screening metho d may be less sensitive for c ertain medicationsincl uding clonazepam and lorazepam in the benzodiazep ine assay andtramadol or fentanyl in the opiate assay, a mongst others. Patientcomplian ce, hydration status, timing and dose of medications, dr neil and specimen qu ality may affect screenin g assay.For clinical discre pancies, consider direct ed testing for specificcompoun ds or contact the laboratory within specimen stability tofor anderson for confirmatory te sting. This test is specifi ed for medicalpurposes only. It is not valid for f orensic use. PAP TEST, THINPREP, [id number] 19:18:13 Test Item Value Reference Range Interpretation Comments SOURCE: (test Cervical/Vagin code = 8001) al SLIDES: (test 1 code = 8011) LMP: (test code 11/28/2021 = 8021) SPECIMEN (NOTE) Satisfactory f or ADEQUACY: (test evaluation. Endocervical code = 50014) cells/transfor mation zone component present. INTERPRETATION: NILM/NO EPITH. 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 The Pap test is a s creening test with an in herent, but low probabi lity of error. Your pat ient should be remin ded to consult you imm ediately if she experien jovanny any suspicious sign s or symptoms, regar dless of her Pap test re sult. An alternate repor t format containing imag es or consolidated pr ior Pap history is avai lable as applicable. CT/NG, NAAT, [id number] 19:07:25 Test Item Value Reference Range Interpretation Comments CHLAMYDIA, NAAT, NEGATIVE NEGATIVE A negative result does THINPREP (test code not excl ude low level = 89246) infection, specimensamplin g error, or collection erro r. Testing is performed wi th the [employer] systems usingre al-time Polymerase Александр n Reaction (PCR) method. GONORRHEA, NAAT, NEGATIVE NEGATIVE A negative result does THINPREP (test code not excl ude low level = 25322) infection, specimensamplin g error, or collection erro r. Testing is performed wi th the [employer] systems usingre al-time Polymerase Александр n Reaction (PCR) method. HPV HIGH RISK WITH GENOTYPE, [id number] 18:09:30 Test Item Value Reference Range Interpretation Comments HPV HIGH RISK INTERP NEGATIVE NEGATIVE (test code = 75811) HPV 16 (test code = NEGATIVE 31811) HPV 18 (test code = NEGATIVE 84576) HPV, HR, OTHER NEGATIVE Testing meth odology is GENOTYPES (test code real-ti me PCR utilizing = 09464) hydrolysis prob es with the [employer] system. The ean t individually de tects genotypes 16 an d 18, as well as the oth er 12 high risk types (31,33,35,39,45 ,51,52,56 ,58,59,66,68). The expected result is negative. A neg ative result does not rule out the presence of HPV not included in the genotype set, a low leve l of infection or sp ecimen sampling error. UNLESS OTHERWISE INDIC ATED, ALL TESTING PERFORM ED [facility] [place]. [address] [place] [address] LABORATORY DIRE CTOR: NOAM MORRIS M.D. CLIA NUMBER [id number] [place] [id number] VARICELLA ZOSTER [id number] 13:41:24 Test Item Value Reference Range Interpretation Comments VARICELLA ZOSTER IgG 95 INDEX SEE BELOW L INTERP RETATION VZV IgG (test code = 77116) NEGATIVE . . . . . . . . . . . . INDEX < 135 EQUIVOCAL. . . . . . . . . . . . INDEX 1 35-164 NOTE: CONSIDER RETESTING IN A CLINICALLY SUITABLE PERIOD OF TIME, NO SOONER THAN 1-2 WEEKS. POSITIVE . . . . . . . . . . . . INDEX >=165 CULTURE, [id number] 10:45:49SPECIMEN NUMBER: [id number] CULTURE, URINE SPECIMEN NUMBER: [id number] SOURCE: URINE REPORT STATUS: FINAL FINAL REPORT: 01/26/2022 NO SPECIMEN RECEIVED FOR TESTING. CHARGES DELETED.OBSTETRIC PANEL + [id number] 06:25:43 Test Item Value Reference Range Interpretation Comments WBC (test code = 6.7 K/UL 3.5-11.0 1001) RBC (test code = 4.18 M/UL 3.80-5.40 1002) HEMOGLOBIN (test 12.6 G/DL 11.5-15.5 code = 1003) HEMATOCRIT (test 37.6 % 34.0-45.0 code = 1004) MCV (test code = 90.0 fL 80.0-99.0 1005) MCH (test code = 30.1 PG 25.0-33.0 1006) MCHC (test code = 33.5 G/DL 31.0-36.0 1007) RDW (test code = 12.2 % 11.5-15.0 1038) NEUTROPHILS (test 58.1 % code = 1008) LYMPHOCYTES (test 32.5 % code = 1010) MONOCYTES (test 6.5 % code = 1011) EOSINOPHILS (test 2.4 % code = 1012) BASOPHILS (test 0.1 % code = 1013) IMMATURE 0.4 % GRANULOCYTES (test code = 1036) NUCLEATED RBCS 0.0 /100 WBC'S See_Comment [Automated message] (test code = 1065) The syste [employer] which generated this result transmit aleja reference range : 0.0. The refere nce range was not u sed to interpret th is result as normal/abnormal . PLATELET COUNT 360 K/UL 130-400 (test code = 1015) ABSOLUTE 3.90 K/UL 1.50-7.50 NEUTROPHILS (test code = 1066) ABSOLUTE 2.19 K/UL 1.00-4.00 LYMPHOCYTES (test code = 1067) ABSOLUTE MONOCYTES 0.44 K/UL 0.20-1.00 (test code = 1068) ABSOLUTE 0.16 K/UL 0.00-0.50 EOSINOPHILS (test code = 1040) ABSOLUTE BASOPHILS 0.01 K/UL 0.00-0.20 (test code = 1069) ABS IMMATURE 0.03 K/UL 0.00-0.10 GRANULOCYTES (test code = 1020) ABS NUCLEATED RBCS 0.00 K/UL 0.00-0.11 (test code = 80358) BLOOD TYPE AND RH O POSITIVE A HISTORI ALEX RECORD (test code = 3901) CHECK FOR PREVIOUS RESULTS IS NOT PERFORMED.THESE RESULTS SHOULD BE CORRELATED WITH RESULTS OF PRIO R BLOODTYPING AND ANTIBODY SCREEN STUDIES. ANTIBODY SCREEN NEGATIVE NEGATIVE A HISTORICA L RECORD (test code = 3902) CHECK FOR PREVIOUS RESULTS IS NOT PERFORMED.THESE RESULTS SHOULD BE CORRELATED WITH RESULTS OF PRIO R BLOODTYPING AND ANTIBODY SCREEN STUDIES. RUBELLA ANTIBODY 5 IU/ML SEE BELOW L INTERPRETA TION SCREEN (test code = RUBELLA IgG 4600) NON-REACTIVE/NO N-IMM UNE . . . . . . . IU/ML <10 REACTIVE/IMMUNE . . . . . . . . . . . IU/ML >=10 RUBELLA IgG INTERP NON-REACTIVE REACTIVE A (test code = 00187) HEPATITIS B SURF AG NON-REACTIVE NON-REACTIVE (test code = 2739) RPR (test code = NON-REACTIVE NON-REACTIVE 67356) RPR TITER (test NOT INDIC. NOT INDIC. code = 3500) TITER HIV 1/2 4TH GEN, NON-REACTIVE NON-REACTIVE RFLX CONF (test code = 3514) HEPATITIS C [id number] 06:25:43 Test Item Value Reference Range Interpretation Comments HEPATITIS C ANTIBODY (test code NON-REACTIVE NON-REACTIVE = 4675) TSH, THIRD [id number] 05:39:11 Test Item Value Reference Range Interpretation Comments TSH, THIRD GENERATION (test code 0.575 UIU/ML 0.400-4.100 = 2821) GLUCOSE, 1 HR, GESTATIONAL SCREEN, 50 GM [id number] 05:12:41 Test Item Value Reference Range Interpretation Comments GLUCOSE 1 HR POST 103 MG/DL <140 UNLESS OT HERWISE 50 GM (test code = INDICATED , ALL TESTING 2005) PERFORMED ATCLI NICAL PATHOLOGY [employer]. [address] [place] [address] LOCATED WITHIN [facility] DIRECTOR: NOAM BERNARD M.D. CLIA NUMBER [id number] CAP ACCREDITATION N O. [id number] UR HCG [id number] 11:18:00 Test Item Value Reference Range Interpretation Comments UR HCG QUAL (test code = HCGQLU) NEGATIVE NEGATIVE - XR L-SPINE 2/3 [id number] 11:17:00 [facility] 1995 Sex: F Name: MARI NARAYANAN [facility] : 1995 Age/S: 26 / F [address] [place] Unit #: [id number] Loc: [place] [address] Phys: Ian Maxwell NP Acct: [id number] Dis Date: Status: REG ER PHONE #: [phone] Exam Date: 08/21/2021 1055 FAX #: Reason: LOW BACK PAIN EXAMS: CPT: [id number] XR L-SPINE 2/3 VIEWS 44730 Fluoro Time: DAP (Gy m2): Air Kerma [...] andsigned by: Elisabet Talamantes M.D. CC: Eduin Gomez MD; Ian Maxwell NP PAGE 1 Signed Report Name: MARI NARAYANAN [place] : 1995 Age/S: 26 / F [address] [address] Unit #: [id number] Loc:[place] [address] Phys: Ian Maxwell NP Acct: [id number] Dis Date: Status: REG ER PHONE #: [phone] Exam Date: 08/21/2021 1055 FAX #: Reason: LOW BACK PAIN EXAMS: CPT: [id number] XR L-SPINE 2/3 VIEWS 05933 Fluoro Time: DAP (Gy m2): Air Kerma (mGy): (Continued) Technologist: Virgen Henry,RT(R)(MR) Trnscb Date/Time: 08/21/2021 (1117) [email or web address] Orig Print D/T: S: 08/21/2021 (1120) PAGE 2 Signed ReportLIPID [id number] 00:00:00 Test Item Value Reference Range Interpretation Comments CHOLESTEROL (test code = 2210) 178 MG/DL TRIGLYCERIDES (test code = 2232) 197 MG/DL HDL CHOLESTEROL (test code = 2220) 45 MG/DL CALC LDL CHOL (test code = 2237) 101 MG/DL RISK RATIO LDL/HDL (test code = 2.24 RATIO 2238) COMPREHENSIVE METABOLIC [id number] 00:00:00 Test Item Value Reference Range Interpretation Comments GLUCOSE (test code = 2217) 101 MG/DL BUN (test code = 2208) 13 MG/DL CREATININE (test code = 2214) 0.80 MG/DL eGFR AMER. (test code 120 ML/MIN/1.73 = 47917) eGFR NON- AMER. (test 103 ML/MIN/1.73 code = 89313) CALC BUN/CREAT (test code = 16 RATIO 2235) SODIUM (test code = 2231) 143 MEQ/L POTASSIUM (test code = 2228) 4.8 MEQ/L CHLORIDE (test code = 2215) 105 MEQ/L CARBON DIOXIDE (test code = 24 MEQ/L 220) CALCIUM (test code = 2209) 9.5 MG/DL PROTEIN, TOTAL (test code = 6.7 G/DL 2228) ALBUMIN (test code = 2201) 4.3 G/DL CALC GLOBULIN (test code = 2.4 G/DL 2240) CALC A/G RATIO (test code = 1.8 RATIO 2234) BILIRUBIN, TOTAL (test code = 0.2 MG/DL 2206) ALKALINE PHOSPHATASE (test 73 U/L code = 2204) AST (test code = 2218) 19 U/L ALT (test code = 2219) 23 U/L COMPREHENSIVE METABOLIC [id number] 00:00:00 Test Item Value Reference Range Interpretation Comments GLUCOSE (test code = 2217) 101 MG/DL BUN (test code = 2208) 13 MG/DL CREATININE (test code = 2214) 0.80 MG/DL eGFR AMER. (test code 120 ML/MIN/1.73 = 96678) eGFR NON- AMER. (test 103 ML/MIN/1.73 code = 16087) CALC BUN/CREAT (test code = 16 RATIO 2235) SODIUM (test code = 2231) 143 MEQ/L POTASSIUM (test code = 2228) 4.8 MEQ/L CHLORIDE (test code = 2215) 105 MEQ/L CARBON DIOXIDE (test code = 24 MEQ/L 2205) CALCIUM (test code = 2209) 9.5 MG/DL PROTEIN, TOTAL (test code = 6.7 G/DL 2228) ALBUMIN (test code = 2201) 4.3 G/DL CALC GLOBULIN (test code = 2.4 G/DL 2240) CALC A/G RATIO (test code = 1.8 RATIO 2234) BILIRUBIN, TOTAL (test code = 0.2 MG/DL 2206) ALKALINE PHOSPHATASE (test 73 U/L code = 2204) AST (test code = 2218) 19 U/L ALT (test code = 2219) 23 U/L [id number] 00:00:00 Test Item Value Reference Range Interpretation Comments TSH, THIRD GENERATION (test code 0.620 UIU/ML = 2821) [id number] 00:00:00 Test Item Value Reference Range Interpretation Comments TSH, THIRD GENERATION (test code 0.620 UIU/ML = 2821) [id number] 00:00:00 Test Item Value Reference Range Interpretation Comments TSH, THIRD GENERATION (test code 0.620 UIU/ML = 2821) GC AND CHLAMYDIA, AMPLIFIED, [id number] 00:00:00 Test Item Value Reference Range Interpretation Comments GONORRHEA, NAAT (test code = 24498) NEGATIVE CHLAMYDIA, NAAT (test code = 27700) NEGATIVE GC AND CHLAMYDIA, AMPLIFIED, [id number] 00:00:00 Test Item Value Reference Range Interpretation Comments GONORRHEA, NAAT (test code = 99390) NEGATIVE CHLAMYDIA, NAAT (test code = 48623) NEGATIVE CBC W/AUTO [id number] 00:00:00 Test Item Value Reference Range Interpretation Comments WBC (test code = 1001) 5.8 K/UL RBC (test code = 1002) 4.81 M/UL HEMOGLOBIN (test code = 1003) 14.5 G/DL HEMATOCRIT (test code = 1004) 43.4 % MCV (test code = 1005) 90.2 fL MCH (test code = 1006) 30.1 PG MCHC (test code = 1007) 33.4 G/DL RDW (test code = 1038) 12.1 % NEUTROPHILS (test code = 1008) 54.2 % LYMPHOCYTES (test code = 1010) 36.3 % MONOCYTES (test code = 1011) 6.4 % EOSINOPHILS (test code = 1012) 2.4 % BASOPHILS (test code = 1013) 0.5 % IMMATURE GRANULOCYTES (test 0.2 % code = 1036) NUCLEATED RBCS (test code = 0.0 /100WBC'S 1065) PLATELET COUNT (test code = 302 K/UL 1015) ABSOLUTE NEUTROPHILS (test code 3.15 K/UL = 1066) ABSOLUTE LYMPHOCYTES (test code 2.11 K/UL = 1067) ABSOLUTE MONOCYTES (test code = 0.37 K/UL 1068) ABSOLUTE EOSINOPHILS (test code 0.14 K/UL = 1040) ABSOLUTE BASOPHILS (test code = 0.03 K/UL 1069) ABS IMMATURE GRANULOCYTES (test 0.01 K/UL code = 1020) ABS NUCLEATED RBCS (test code = 0.00 K/UL 53563) CBC W/AUTO [id number] 00:00:00 Test Item Value Reference Range Interpretation Comments WBC (test code = 1001) 5.8 K/UL RBC (test code = 1002) 4.81 M/UL HEMOGLOBIN (test code = 1003) 14.5 G/DL HEMATOCRIT (test code = 1004) 43.4 % MCV (test code = 1005) 90.2 fL MCH (test code = 1006) 30.1 PG MCHC (test code = 1007) 33.4 G/DL RDW (test code = 1038) 12.1 % NEUTROPHILS (test code = 1008) 54.2 % LYMPHOCYTES (test code = 1010) 36.3 % MONOCYTES (test code = 1011) 6.4 % EOSINOPHILS (test code = 1012) 2.4 % BASOPHILS (test code = 1013) 0.5 % IMMATURE GRANULOCYTES (test 0.2 % code = 1036) NUCLEATED RBCS (test code = 0.0 /100WBC'S 1065) PLATELET COUNT (test code = 302 K/UL 1015) ABSOLUTE NEUTROPHILS (test code 3.15 K/UL = 1066) ABSOLUTE LYMPHOCYTES (test code 2.11 K/UL = 1067) ABSOLUTE MONOCYTES (test code = 0.37 K/UL 1068) ABSOLUTE EOSINOPHILS (test code 0.14 K/UL = 1040) ABSOLUTE BASOPHILS (test code = 0.03 K/UL 1069) ABS IMMATURE GRANULOCYTES (test 0.01 K/UL code = 1020) ABS NUCLEATED RBCS (test code = 0.00 K/UL 05721) CBC W/AUTO [id number] 00:00:00 Test Item Value Reference Range Interpretation Comments WBC (test code = 1001) 5.8 K/UL RBC (test code = 1002) 4.81 M/UL HEMOGLOBIN (test code = 1003) 14.5 G/DL HEMATOCRIT (test code = 1004) 43.4 % MCV (test code = 1005) 90.2 fL MCH (test code = 1006) 30.1 PG MCHC (test code = 1007) 33.4 G/DL RDW (test code = 1038) 12.1 % NEUTROPHILS (test code = 1008) 54.2 % LYMPHOCYTES (test code = 1010) 36.3 % MONOCYTES (test code = 1011) 6.4 % EOSINOPHILS (test code = 1012) 2.4 % BASOPHILS (test code = 1013) 0.5 % IMMATURE GRANULOCYTES (test 0.2 % code = 1036) NUCLEATED RBCS (test code = 0.0 /100WBC'S 1065) PLATELET COUNT (test code = 302 K/UL 1015) ABSOLUTE NEUTROPHILS (test code 3.15 K/UL = 1066) ABSOLUTE LYMPHOCYTES (test code 2.11 K/UL = 1067) ABSOLUTE MONOCYTES (test code = 0.37 K/UL 1068) ABSOLUTE EOSINOPHILS (test code 0.14 K/UL = 1040) ABSOLUTE BASOPHILS (test code = 0.03 K/UL 1069) ABS IMMATURE GRANULOCYTES (test 0.01 K/UL code = 1020) ABS NUCLEATED RBCS (test code = 0.00 K/UL 96557) LIPID [id number] 00:00:00 Test Item Value Reference Range Interpretation Comments CHOLESTEROL (test code = 2210) 178 MG/DL TRIGLYCERIDES (test code = 2232) 197 MG/DL HDL CHOLESTEROL (test code = 2220) 45 MG/DL CALC LDL CHOL (test code = 2237) 101 MG/DL RISK RATIO LDL/HDL (test code = 2.24 RATIO 2238) VAGINAL PATHOGENS DNA [id number] 00:00:00 Test Item Value Reference Range Interpretation Comments RAYSA SPECIES (test code = ) NEGATIVE G. VAGINALIS (test code = ) POSITIVE T. VAGINALIS (test code = 24038) NEGATIVE VAGINAL PATHOGENS DNA [id number] 00:00:00 Test Item Value Reference Range Interpretation Comments RAYSA SPECIES (test code = ) NEGATIVE G. VAGINALIS (test code = 65945) POSITIVE T. VAGINALIS (test code = 42167) NEGATIVE VAGINAL PATHOGENS DNA [id number] 00:00:00 Test Item Value Reference Range Interpretation Comments RAYSA SPECIES (test code = 00327) NEGATIVE G. VAGINALIS (test code = 61284) POSITIVE T. VAGINALIS (test code = 04593) NEGATIVE VAGINAL PATHOGENS DNA [id number] 00:00:00 Test Item Value Reference Range Interpretation Comments RAYSA SPECIES (test code = 81796) NEGATIVE G. VAGINALIS (test code = 48319) POSITIVE T. VAGINALIS (test code = 02040) NEGATIVE HIV AB/AG COMBO RFLX [id number] 00:00:00 Test Item Value Reference Range Interpretation Comments HIV 1/2 4TH GEN, RFLX CONF (test NON-REACTIVE code = 3514) HEPATITIS PROFILE (A,B,C)2019-06-22 00:00:00 Test Item Value Reference Range Interpretation Comments HEPATITIS A TOTAL AB (test code NON-REACTIVE = 2725) HEPATITIS B SURF AG (test code = NON-REACTIVE 2739) HEP B CORE TOTAL AB (test code = NON-REACTIVE 2729) HEPATITIS B SURFACE AB (test NON-REACTIVE code = 2737) HEPATITIS C ANTIBODY (test code NON-REACTIVE = 4675) INTERPRETATION HEPATITIS A: (NOTE) (test code = 2552) INTERPRETATION HEPATITIS B: (NOTE) (test code = 17037) INTERPRETATION HEPATITIS C: (NOTE) (test code = 86696) HEPATITIS PROFILE (A,B,C)2019-06-22 00:00:00 Test Item Value Reference Range Interpretation Comments HEPATITIS A TOTAL AB (test code NON-REACTIVE = 2725) HEPATITIS B SURF AG (test code = NON-REACTIVE 2739) HEP B CORE TOTAL AB (test code = NON-REACTIVE 2729) HEPATITIS B SURFACE AB (test NON-REACTIVE code = 2737) HEPATITIS C ANTIBODY (test code NON-REACTIVE = 4675) INTERPRETATION HEPATITIS A: (NOTE) (test code = 2552) INTERPRETATION HEPATITIS B: (NOTE) (test code = 46369) INTERPRETATION HEPATITIS C: (NOTE) (test code = 05479) [id number] 00:00:00 Test Item Value Reference Range Interpretation Comments RPR RESULT (test code = NON-REACTIVE 3501) RPR TITER (test code = 3500) NOT INDIC. TITER [id number] 00:00:00 Test Item Value Reference Range Interpretation Comments RPR RESULT (test code = NON-REACTIVE 3501) RPR TITER (test code = 3500) NOT INDIC. TITER [id number] 00:00:00 Test Item Value Reference Range Interpretation Comments RPR RESULT (test code = NON-REACTIVE 3501) RPR TITER (test code = 3500) NOT INDIC. TITER GC AND CHLAMYDIA, AMPLIFIED, [id number] 00:00:00 Test Item Value Reference Range Interpretation Comments GONORRHEA, TMA (test code = 45384) NEGATIVE CHLAMYDIA, TMA (test code = 92584) NEGATIVE GC AND CHLAMYDIA, AMPLIFIED, [id number] 00:00:00 Test Item Value Reference Range Interpretation Comments GONORRHEA, TMA (test code = 83403) NEGATIVE CHLAMYDIA, TMA (test code = 71040) NEGATIVE HIV AB/AG COMBO RFLX [id number] 00:00:00 Test Item Value Reference Range Interpretation Comments HIV 1/2 4TH GEN, RFLX CONF (test NON-REACTIVE code = 3514) - XR CHEST 2 [id number] 13:37:00 Name: MARI NARAYANAN [facility] : 1995 Age/S: 23 / F [id number] [address] Unit #: [id number] Loc: [place] [address] Phys: Laney Kaur MD Acct: [id number] Dis Date: Status: REG E R PHONE #: [phone] Exam Date: 02/26/2019 1325 FAX #: Reason: cough EXAMS: CPT: [id number] XR CHEST 2 V 35538 Fluoro Time: DAP (Gy m2): Air Kerma (mGy): Location code: R 16 Chest two views frontal and lateral Indication: cough. Comparison: None Findings: The heart and mediastinum are not remarkable. Costophrenic angles are clear. Lungs are clear. Bone is unremarkable for age. Impression: 1. No radiographic evidence of acute cardiopulmonary disease. at 1337 Reported and signed by: Dmitri Rodriguez M.D. CC: Bárbara Middleton COLOR LABORATORY TECHNICIAN; Laney Kaur MD PAGE 1 Signed Report Name: MARI NARAYANAN [facility] : 1995 Age/S: 23 / F [address] [place] Unit #: [id number] Loc: [place] [address] Phys: Laney Kaur MD Acct: [id number] Dis Date: Status: REG ER PHONE #: [phone] Exam Date: 02/26/2019 1325FAX #: Reason: cough EXAMS: CPT: [id number] XR CHEST 2 V 06403 Fluoro Time: DAP (Gy m2): Air Kerma (mGy): (Continued) Technologist: Kimberly Banks, RT(R) Trnscb Date/Time: 02/26/2019 (0111) [email or web address] Orig Print D/T: S: 02/26/2019 (1562) PAGE 2 Signed ReportHIV AB/AG COMBO RFLX [id number] 00:00:00 Test Item Value Reference Range Interpretation Comments HIV 1/2 4TH GEN, RFLX CONF (test NON-REACTIVE code = 3514) ACUTE HEPATITIS [id number] 00:00:00 Test Item Value Reference Range Interpretation Comments HEPATITIS A IgM (test code = NON-REACTIVE 59820) HEPATITIS B CORE IgM (test code NON-REACTIVE = 4644) HEPATITIS B SURF AG (test code = NON-REACTIVE 2739) HEPATITIS C ANTIBODY (test code NON-REACTIVE = 4675) HCV INDEX (test code = 17639) 0.13 INTERPRETATION HEPATITIS A: (NOTE) (test code = 2552) INTERPRETATION HEPATITIS B: (NOTE) (test code = 57379) INTERPRETATION HEPATITIS C: (NOTE) (test code = 06295) ACUTE HEPATITIS [id number] 00:00:00 Test Item Value Reference Range Interpretation Comments HEPATITIS A IgM (test code = NON-REACTIVE 93220) HEPATITIS B CORE IgM (test code NON-REACTIVE = 4644) HEPATITIS B SURF AG (test code = NON-REACTIVE 2739) HEPATITIS C ANTIBODY (test code NON-REACTIVE = 4675) HCV INDEX (test code = 62653) 0.13 INTERPRETATION HEPATITIS A: (NOTE) (test code = 2552) INTERPRETATION HEPATITIS B: (NOTE) (test code = 19018) INTERPRETATION HEPATITIS C: (NOTE) (test code = 16926) [id number] 00:00:00 Test Item Value Reference Range Interpretation Comments RPR RESULT (test code = NON-REACTIVE 3501) RPR TITER (test code = 3500) NOT INDIC. TITER [id number] 00:00:00 Test Item Value Reference Range Interpretation Comments RPR RESULT (test code = NON-REACTIVE 3501) RPR TITER (test code = 3500) NOT INDIC. TITER [id number] 00:00:00 Test Item Value Reference Range Interpretation Comments RPR RESULT (test code = NON-REACTIVE 3501) RPR TITER (test code = 3500) NOT INDIC. TITER VAGINAL PATHOGENS DNA [id number] 00:00:00 Test Item Value Reference Range Interpretation Comments RAYSA SPECIES (test code = ) NEGATIVE G. VAGINALIS (test code = 22116) POSITIVE T. VAGINALIS (test code = 25010) NEGATIVE VAGINAL PATHOGENS DNA [id number] 00:00:00 Test Item Value Reference Range Interpretation Comments RAYSA SPECIES (test code = ) NEGATIVE G. VAGINALIS (test code = 08747) POSITIVE T. VAGINALIS (test code = 46156) NEGATIVE HIV AB/AG COMBO RFLX [id number] 00:00:00 Test Item Value Reference Range Interpretation Comments HIV 1/2 4TH GEN, RFLX CONF (test NON-REACTIVE code = 3514) PAP TEST, THINPREP, [id number] 00:00:00 Test Item Value Reference Range Interpretation Comments SOURCE: (test code = Cervical/Vaginal 8001) SLIDES: (test code = 1 8011) LMP: (test code = 8021) 10/08/2018 SPECIMEN ADEQUACY: (NOTE) (test code = 17686) INTERPRETATION: (test NILM/NO EPITH. code = 57731) ABNORMALITY;SEE BELOW STORE STOCKER: (test Vincent code = 8101) SANJIV Godoy(ASCP) LOCATION: (test code = (NOTE) 70604) CPT: (test code = 8140) (NOTE) HPV HIGH RISK WITH GENOTYPE, [id number] 00:00:00 Test Item Value Reference Range Interpretation Comments HPV HIGH RISK INTERP (test code = NEGATIVE 08260) HPV 16 (test code = 67155) NEGATIVE HPV 18 (test code = 22627) NEGATIVE HPV, HR, OTHER GENOTYPES (test code NEGATIVE = 17331) HPV HIGH RISK WITH GENOTYPE, [id number] 00:00:00 Test Item Value Reference Range Interpretation Comments HPV HIGH RISK INTERP (test code = NEGATIVE 52778) HPV 16 (test code = 52537) NEGATIVE HPV 18 (test code = 95852) NEGATIVE HPV, HR, OTHER GENOTYPES (test code NEGATIVE = 05158) GC AND CHLAMYDIA AMPLIFIED, [id number] 00:00:00 Test Item Value Reference Range Interpretation Comments GONORRHEA, TMA (test code = 18462) NEGATIVE CHLAMYDIA, TMA (test code = 47908) NEGATIVE GC AND CHLAMYDIA AMPLIFIED, [id number] 00:00:00 Test Item Value Reference Range Interpretation Comments GONORRHEA, TMA (test code = 03444) NEGATIVE CHLAMYDIA, TMA (test code = 57283) NEGATIVE PAP TEST, THINPREP, [id number] 00:00:00 Test Item Value Reference Range Interpretation Comments SOURCE: (test code = Cervical/Vaginal 8001) SLIDES: (test code = 1 8011) LMP: (test code = 8021) 10/08/2018 SPECIMEN ADEQUACY: (NOTE) (test code = 49677) INTERPRETATION: (test NILM/NO EPITH. code = 76389) ABNORMALITY;SEE BELOW STORE STOCKER: (test Vincent code = 8101) SANJIV Godoy(ASCP) LOCATION: (test code = (NOTE) 11988) CPT: (test code = 8140) (NOTE)
[2022-04-05 17:38] LABS: Urine Blood Negative (Negative); Urine Glucose Negative (Negative); Urine Protein Negative (Negative); Urine Specific Gravity >=1.030 (1.005-1.030)
[2022-04-05 17:48] LABS: Urine Bacteria None Seen /HPF (<20); Urine RBC <5 /HPF (None Seen); Urine WBC Clump Rare /HPF (None Seen)
[2022-04-05 18:01] LABS: Absolute Lymphocytes (CBC) 2.1 K/uL (0.7-4.9); Hematocrit 35.6 % (36.0-45.0); Lymphocytes % 28.4 % (15.3-44.8); MCV 89.5 fL (80-100); MPV 9.2 fL (7.6-11.3); RBC Red Blood Cell Count 3.98 M/uL (3.86-4.86)
[2022-04-05] MEDS ORDERED: DICYCLOMINE HCL 20 MG/2 ML AMP IM ONE (18:08)
[2022-04-05] MEDS ORDERED: ACETAMINOPHEN 500 MG TAB ONE (18:08)
[2022-04-05] MEDS ORDERED: NA CHLORIDE 0.9% 1,000 ML ONE (18:08)
[2022-04-05 18:18] LABS: Potassium 3.4 mmol/L (3.5-5.1)
[2022-04-05 18:19] LABS: Albumin 2.8 g/dL (3.4-5.0); Bilirubin Total 0.1 mg/dL (0.2-1.0); Protein, Total 6.7 g/dL (6.4-8.2)
[2022-04-05 18:34] LABS: Urine Specific Gravity/Preg >1.030 (1.005-1.030)
[2022-04-05 19:07] LABS: SARS-COV-2 RT PCR NEGATIVE (NEGATIVE)
--- NOTE | 2022-04-05 20:36 | RAD REPORT ---
EXAM DESCRIPTION: US - OB Limited - 04/05/2022 8:20 pm CLINICAL HISTORY: Abdominal cramping, . COMPARISON: Obstetric ultrasound on 01/07/2022. TECHNIQUE: Sonographic grayscale, color flow, and spectral flow Doppler imaging of a second-trimeste r were performed. FINDINGS: A single intrauterine gestation is identified, in a variable position. Heart rate is 140 b eats per minute. The placenta is anterior in position. The maternal cervical os is closed. luther omical structures were not fully evaluated, as the fetus is not yet at the each warranting a full terrell tomical survey. No evidence of subchorionic hemorrhage or other abnormal fluid collections. FL: 2.46 Centimeters corresponding to gestational age 17 weeks and 2 days. Estimated due date b y ultrasound 09/11/2022. IMPRESSION: 1. Single, live, intrauterine . heart rate: 140 beats per minute. 2. Variable presentation. 3. Anteriorly estimated placenta.
--- NOTE | 2022-04-05 21:39 | EDPHYS ---
Physician Documentation [facility] Name: Guillermina Marie Age: 26 yrs Sex: Female : 1995 Arrival Date: 04/05/2022 Time: 16:02 Bed 5 Private MD: ED Physician Omer Mercedes HPI: 04/05 16:29 This 26 yrs old Female presents to ER via Ambulatory with complaints of Abdominal cp Cramping - 18 wks preg. 16:29 The patient presents to the emergency department with abdominal pain, of the right cp lower quadrant and left lower quadrant, that started today, described as crampy. The estimated gestational age is 19 weeks. course: care: private OB physician, Leakage of Fluid: none appreciated. 16:30 Associated signs and symptoms: Pertinent negatives: diarrhea, fever, ruptured cp membranes, vaginal bleeding, vomiting, urinary symptoms. F[employer]: 16:26 LMP 11/28/2021 [facility] 16:29 2, Full Term 1, Living 1 cp Historical: - Allergies: 16:26 Amoxicillin; 5 16:26 PENICILLINS; 5 - PSHx: 16:26 section; 5 - Immunization history:: Adult Immunizations up to date. - Social history:: Smoking status: Patient denies any tobacco usage or history of. ROS: 16:35 Constitutional: Negative for body aches, chills, fever, poor PO intake. cp 16:35 Eyes: Negative for injury, pain, redness, and discharge. cp 16:35 ENT: Negative for drainage from ear(s), ear pain, sore throat, difficulty swallowing, difficulty handling secretions. 16:35 Cardiovascular: Negative for chest pain, palpitations. 16:35 Respiratory: Negative for cough, shortness of breath, wheezing. 16:35 Abdomen/GI: Positive for abdominal cramps, of the right lower quadrant and left lower quadrant, Negative for vomiting, diarrhea, constipation, anorexia, black/tarry stool, rectal bleeding. 16:35 : Negative for urinary symptoms, vaginal bleeding. 16:35 Neuro: Negative for altered mental status, dizziness, headache, weakness. 16:35 All other systems are negative. Exam: 16:30 Constitutional: The patient appears in no acute distress, alert, awake, non-toxic, well cp developed, well nourished, obese, uncomfortable. 16:30 Head/Face: Normocephalic, atraumatic. cp 16:30 Eyes: Periorbital structures: appear normal, Conjunctiva: normal, no exudate, no injection, Sclera: no appreciated abnormality, Lids and lashes: appear normal, bilaterally. 16:30 ENT: External ear(s): are unremarkable, Nose: is normal, Mouth: Lips: moist, Oral mucosa: moist. 16:30 Chest/axilla: Inspection: normal. 16:30 Cardiovascular: Rate: normal, Rhythm: regular. 16:30 Respiratory: the patient does not display signs of respiratory distress, Respirations: normal, no use of accessory muscles, no retractions, labored breathing, is not present, Breath sounds: are clear throughout, no decreased breath sounds, no stridor, no wheezing. 16:30 Abdomen/GI: Inspection: obese Bowel sounds: active, all quadrants, Palpation: soft, in all quadrants, moderate abdominal tenderness, in the right lower quadrant and left lower quadrant, rebound tenderness, is not appreciated. 16:30 Back: pain, that is mild, of the low back area, ROM is painful, with all movement, CVA tenderness, is absent. 16:30 Neuro: Orientation: to person, place \T\ time. Mentation: is normal, Motor: moves all fours, strength is normal, Gait: is steady. Vital Signs: 16:23 BP 114 / 74; Pulse 79; Resp 18; Temp 98.6; Pulse Ox 100% ; Weight 104.33 kg; Height 5 jh5 ft. 2 in. (157.48 cm); Pain 8/10; 20:00 BP 112 / 70; Pulse 71; Resp 17; Pulse Ox 100% ; vc1 21:30 BP 110 / 70; Pulse 70; Resp 16; Pulse Ox 100% ; vc1 16:23 Body Mass Index 42.07 (104.33 kg, 157.48 cm) jh5 MDM: 16:29 Patient medically screened. cp 21:37 Data reviewed: vital signs, nurses notes, lab test result(s), radiologic studies, cp ultrasound. 21:37 Differential diagnosis: ectopic , UTI. Consideration of Admission/Observation cp Escalation of care including admission/observation considered. I considered the following discharge prescriptions or medication management in the emergency department Medications were administered in the Emergency Department. See MAR. Test considered but Not performed: CT: abdomen/pelvis. Counseling: I had a detailed discussion with the patient and/or guardian regarding: the historical points, exam findings, and any diagnostic results supporting the discharge/admit diagnosis, lab results, radiology results, the need for outpatient follow up, an OB/Gyne specialist, to return to the emergency department if symptoms worsen or persist or if there are any questions or concerns that arise at home. Response to treatment: the patient's symptoms have markedly improved after treatment, patient is well hydrated. and as a result, I will discharge patient. Special discussion: Based on the patient's Hx, exam, and Dx evaluation, there is no indication for emergent surgery or inpatient Tx. It is understood by the patient/guardian that if the Sx's persist or worsen they need to return immediately for re-evaluation. 04/05 17:10 Order name: CBC with Diff cp 04/05 17:10 Order name: CMP cp 04/05 17:10 Order name: Lipase cp 04/05 17:10 Order name: Urine Microscopic Only cp 04/05 17:10 Order name: COVID-19/FLU A+B cp 04/05 17:38 Order name: Urine Dipstick-Ancillary; Complete Time: 19:36 EDMS 04/05 17:39 Order name: Urine --Ancillary (enter results) bd 04/05 17:48 Order name: Urine Microscopic Only; Complete Time: 19:36 EDMS 04/05 18:09 Order name: CBC with Automated Diff; Complete Time: 19:36 EDMS 04/05 18:19 Order name: Comprehensive Metabolic Panel; Complete Time: 19:36 EDMS 04/05 20:30 Interpretation: Normal except: K 3.4; CRE 0.51; AST 14; BILIT 0.1; ALB 2.8; GLOB 3.9; cp A/G 0.7. 04/05 18:19 Order name: Lipase; Complete Time: 19:36 EDMS 04/05 18:34 Order name: Urine --Ancillary; Complete Time: 19:36 EDMS 04/05 19:07 Order name: COVID-19/FLU A+B; Complete Time: 19:36 EDMS 04/05 19:37 Order name: US OB Limited cp 04/05 17:10 Order name: IV Saline Lock; Complete Time: 17:50 cp 04/05 17:10 Order name: Labs collected and sent; Complete Time: 17:50 cp 04/05 17:10 Order name: Urine Dipstick-Ancillary (obtain specimen); Complete Time: 17:50 cp 04/05 17:10 Order name: Urine Test (obtain specimen); Complete Time: 17:50 cp 04/05 20:37 Order name: US; Complete Time: 21:31 EDMS Administered Medications: 18:32 Drug: Dicyclomine 20 mg Route: IM; Site: right gluteus; ss 20:00 Follow up: Response: No adverse reaction; Marked relief of symptoms vc1 18:33 Drug: NS 0.9% 1000 ml Route: IV; Rate: 1 bolus; Site: right antecubital; ss 19:30 Follow up: IV Status: Completed infusion vc1 18:33 Drug: Tylenol 1000 mg Route: PO; ss 20:00 Follow up: Response: No adverse reaction; Marked relief of symptoms vc1 21:43 Not Given (Other Intervention Used): Potassium Effervescent Tablet 50 mEq PO once; vc1 dissolve in 4 ounces of water or juice 21:44 Drug: Potassium Chloride 40 mEq Route: PO; vc1 21:51 Follow up: Response: No adverse reaction; Medication administered at discharge. vc1 Disposition: 04/06 07:14 Co-signature as Attending Physician, Omer Mercedes MD I reviewed the patient's care rn provided by the Advanced Practice Provider and agree with the diagnosis and treatment plan. Disposition Summary: 04/05/22 21:38 Discharge Ordered Location: Home cp Problem: new cp Symptoms: have improved cp Condition: Stable cp Diagnosis - Other specified related conditions, second trimester cp - Lower abdominal pain, unspecified cp Followup: cp - With: Private Physician - When: 2 - 3 days - Reason: Recheck today's complaints Discharge Instructions: - Discharge Summary Sheet cp - Abdominal Pain During cp - Round Ligament Pain cp Forms: - Medication Reconciliation Form cp - Thank You Letter cp - Antibiotic Education cp - Prescription Opioid Use cp Signatures: Dispatcher [employer] EDMS Omer Mercedes MD MD rn Smirch, Shelby, RN RN ss Page, Corey, PA PA cp Tiffany Bae RN RN jh5 Nabila Nicole RN RN vc1
--- NOTE | 2022-04-05 21:39 | ER ---
Nurse's Notes [facility] Name: Guillermina Marie Age: 26 yrs Sex: Female : 1995 Arrival Date: 04/05/2022 Time: 16:02 Bed 5 Private MD: Diagnosis: Other specified related conditions, second trimester;Lower abdominal pain, unspecified Presentation: 04/05 16:23 Chief complaint: Patient states: im 18 weeks and i am having cramping, back jh5 pain, and a horrible headache. Coronavirus screen: Vaccine status: Patient reports being unvaccinated. Client denies travel out of the [place] in the last 14 days. Ebola Screen: Patient negative for fever greater than or equal to 101.5 degrees Fahrenheit, and additional compatible Ebola Virus Disease symptoms Patient denies exposure to infectious person. Patient denies travel to an Ebola-affected area in the 21 days before illness onset. Initial Sepsis Screen: Does the patient meet any 2 criteria? No. Patient's initial sepsis screen is negative. Does the patient have a suspected source of infection? No. Patient's initial sepsis screen is negative. Risk Assessment: Do you want to hurt yourself or someone else? Patient reports no desire to harm self or others. 16:23 Method Of Arrival: Ambulatory [facility] 16:23 Acuity: NADIRA 3 5 Triage Assessment: 16:26 General: Appears uncomfortable, obese, Behavior is calm, cooperative, appropriate for [facility] age. Pain: Complains of pain in abdomen. GI: Reports lower abdominal pain. 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 - Social history:: Smoking status: Patient denies any tobacco usage or history of. Screenin:00 [facility] ED Fall Risk Assessment (Adult) History of falling in the last 3 months, vc1 including since admission No falls in past 3 months (0 pts) Confusion or Disorientation No (0 pts) Intoxicated or Sedated No (0 pts) Impaired Gait No (0 pts) Mobility Assist Device Used No (0 pt) Altered Elimination No (0 pt) Score/Fall Risk Level 0 - 2 = Low Risk. Abuse screen: Denies threats or abuse. Nutritional screening: No deficits noted. Tuberculosis screening: No symptoms or risk factors identified. Assessment: 18:33 General: Appears in no apparent distress. comfortable, Behavior is calm, cooperative. ss Pain: Complains of pain in left lower quadrant and right lower quadrant Quality of pain is described as crampy. Neuro: Level of Consciousness is awake, alert, obeys commands, Oriented to person, place, time, situation. Cardiovascular: Capillary refill < 3 seconds is brisk in bilateral fingers Patient's skin is warm and dry. Respiratory: Airway is patent Respiratory effort is even, unlabored, Respiratory pattern is regular, symmetrical. : No signs and/or symptoms were reported regarding the genitourinary system. Derm: Skin is intact, is healthy with good turgor, Skin is pink, warm \T\ dry. normal. 19:00 GI: Bowel sounds present X 4 quads. Abd is soft and non tender X 4 quads. vc1 19:30 Reassessment: No changes from previously documented assessment. Patient and/or family vc1 updated on plan of care and expected duration. Pain level reassessed. 20:30 Reassessment: No changes from previously documented assessment. Patient and/or family vc1 updated on plan of care and expected duration. Pain level reassessed. Patient is alert, oriented x 3, equal unlabored respirations, skin warm/dry/pink. 21:30 Reassessment: Patient and/or family updated on plan of care and expected duration. Pain vc1 level reassessed. Patient is alert, oriented x 3, equal unlabored respirations, skin warm/dry/pink. Patient states feeling better. Patient states symptoms have improved. Vital Signs: 16:23 BP 114 / 74; Pulse 79; Resp 18; Temp 98.6; Pulse Ox 100% ; Weight 104.33 kg; Height 5 jh5 ft. 2 in. (157.48 cm); Pain 8/10; 20:00 BP 112 / 70; Pulse 71; Resp 17; Pulse Ox 100% ; vc1 21:30 BP 110 / 70; Pulse 70; Resp 16; Pulse Ox 100% ; vc1 16:23 Body Mass Index 42.07 (104.33 kg, 157.48 cm) jh5 ED Course: 16:02 Patient arrived in ED. am2 16:03 Lew Berrios PA is PHCP. cp 16:03 Omer Mercedes MD is Attending Physician. 16:26 Triage completed. [facility] 16:26 Arm band placed on right wrist. [facility] 17:50 Kate Figueroa RN is Primary Nurse. 17:50 Inserted saline lock: 20 gauge in right antecubital area, using aseptic technique. ss Blood collected. 20:58 Primary Nurse role handed off by Kate Figueroa RN mw2 21:49 Nabila Nicole RN is Primary Nurse. vc1 21:52 No provider procedures requiring assistance completed. IV discontinued, intact, vc1 bleeding controlled, No redness/swelling at site. Pressure dressing applied. Administered Medications: 18:32 Drug: Dicyclomine 20 mg Route: IM; Site: right gluteus; ss 20:00 Follow up: Response: No adverse reaction; Marked relief of symptoms vc1 18:33 Drug: NS 0.9% 1000 ml Route: IV; Rate: 1 bolus; Site: right antecubital; ss 19:30 Follow up: IV Status: Completed infusion vc1 18:33 Drug: Tylenol 1000 mg Route: PO; ss 20:00 Follow up: Response: No adverse reaction; Marked relief of symptoms vc1 21:43 Not Given (Other Intervention Used): Potassium Effervescent Tablet 50 mEq PO once; vc1 dissolve in 4 ounces of water or juice 21:44 Drug: Potassium Chloride 40 mEq Route: PO; vc1 21:51 Follow up: Response: No adverse reaction; Medication administered at discharge. vc1 Medication: 21:53 VIS not applicable for this client. vc1 Outcome: 21:38 Discharge ordered by . cp 21:53 Discharged to home ambulatory. vc1 21:53 Condition: good 21:53 Discharge instructions given to patient, Instructed on discharge instructions, follow up and referral plans. Demonstrated understanding of instructions, follow-up care. 21:53 Patient left the ED. vc1 Signatures: Kate Figueroa RN RN Lew Berrios PA PA cp Ale Gillis am2 Tanesha Shore 2 Tiffany Bae RN RN [facility] Nabila Nicole RN RN vc1
[2022-04-05] MEDS ORDERED: POTASSIUM 25 MEQ EFFERV TAB ONE (21:43)
[2022-04-05] MEDS ORDERED: POTASSIUM CL SA 10 MEQ TAB PO ONE (21:45)
[2022-04-05 22:22] VITALS: TEMP 98.6; O2SAT 100
[2022-04-05 22:33] VITALS: BP 110/70
== END 2022-04-05 21:53 | disposition home or self-care (01) ==
LOC: ER 15:57
DX: O26.892 Other specified pregnancy related conditions, second trimester (principal); Z3A.19 19 weeks gestation of pregnancy; Z20.822 Contact with and (suspected) exposure to COVID-19; Z88.0 Allergy status to penicillin; Z88.1 Allergy status to other antibiotic agents
CPT/HCPCS: 85025; 36415; 81025; 83690; 80053; 0240U; 76815; 96360; 96372; 99283; J0500; J7030; 81003; 81015

== ENCOUNTER 2023-12-25 07:59 | Emergency (ER) | payer BC, OTHER ==
[2023-12-25] MEDS ORDERED: ACETAMINOPHEN 325 MG TABLET ONE (08:23)
[2023-12-25 08:33] LABS: Absolute Eosinophils 0.1 K/uL (0-0.5); Absolute Lymphocytes (CBC) 1.9 K/uL (0.7-4.9); Absolute Monocytes 0.4 K/uL (0.1-1.3); Absolute Neutrophil 2.6 K/uL (1.8-8.0); Basophils % 0.5 % (0-1.3); Eosinophils % 2.6 % (0-4.4); Hematocrit 38.7 % (36.0-45.0); Hemoglobin 13.1 g/dL (12.0-15.0); Lymphocytes % 37.3 % (15.3-44.8); MCH 29.9 pg (27.0-35.0); MCHC 33.8 g/dL (32.0-36.0); MCV 88.5 fL (80-100); MPV 8.8 fL (7.6-11.3); Monocytes % 8.1 % (3.3-12.3); Neutrophils % 51.5 % (41.7-73.7); Nucleated Red Blood Cells % 0.1 % (0-0); Platelets 291 thou/uL (152-406); RBC Red Blood Cell Count 4.37 M/uL (3.86-4.86); Red Cell Distribution Width 13.1 % (12.1-15.2)
[2023-12-25 08:35] LABS: Specific Gravity 1.027 (1.005-1.030); Sqamous Epithelial <5 /HPF (None Seen); Urine Bacteria None Seen /HPF (<20); Urine Bilirubin NEGATIVE (Negative); Urine Blood 2+ (Negative); Urine Clarity Clear (Clear); Urine Color Light-Yellow (Yellow); Urine Culture Reflex Order NOT NEEDED; Urine Glucose NEGATIVE (Negative); Urine Ketones NEGATIVE (Negative); Urine Microscopic Reflex YN ORDER UMIC; Urine Mucus Slight /HPF (None Seen); Urine Nitrite NEGATIVE (Negative); Urine Protein NEGATIVE (Negative); Urine RBC <5 /HPF (None Seen); Urine Urobilinogen Normal (Normal); Urine WBC <5 /HPF (<5); Urine pH 5.5 (5.0-7.0)
[2023-12-25 09:07] LABS: Anion Gap 7.6 mEq/L (5.0-15.0); Potassium 3.6 mEq/L (3.5-5.1)
--- NOTE | 2023-12-25 09:16 | RAD REPORT ---
EXAM: Transvaginal OB HISTORY: Abd cramping, ;Vaginal bleeding COMPARISON: None TECHNIQUE: Multiple grayscale and color Doppler images were obtained in a transvaginal pelvic ultraso und. Spectral analysis of the Doppler waveforms of the ovaries were performed. FINDINGS: UTERUS: Intrauterine saclike structure with possible double decidual sign No yolk sac or pole. No free fluid is seen in the pelvis. RIGHT OVARY: Normal flow without focal mass. LEFT OVARY: Enlarged left ovary measuring 4.6 x 3.6 x 5 cm. A 2.9 cm cyst is present which does not r equire follow-up. Vascular flow is present. IMPRESSION: Possible IUP. Suggest correlation with beta hCG and recommend short-term follow-up pelvic ultrasound. Bilateral ovarian blood flow.
--- NOTE | 2023-12-25 09:26 | EDPHYS ---
Physician Documentation [facility] Name: Guillermina Marie Age: 28 yrs Sex: Female : 1995 Arrival Date: 12/25/2023 Time: 07:59 Bed 15 Private MD: ED Physician Alina Bennett HPI: 12/24 08:20 This 28 yrs old Female presents to ER via Ambulatory with complaints of Vaginal sp3 Bleeding, + Preg <12wks - with cramping. 08:20 28-year-old female with no past medical history presents with vaginal bleeding and sp3 lower abdominal cramping for 2 to 3 days. Patient is G3, with unknown LMP due to irregular menses and patient being on control recently. Patient had 2 positive test at home and then [facility] with [facility] also had a positive test and performed an ultrasound where they "did not see anything" and was therefore referred here for further evaluation and workup. Patient denies any other symptoms including fever, headache, chest pain, shortness of breath, upper abdominal pain, bleeding anywhere else, rash, or any other signs or symptoms on ROS at this time.. 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 - Infectious Disease History:: Denies. - Social history:: Smoking status: Patient denies any tobacco usage or history of. ROS: 08:21 Constitutional: Negative for fever, chills, and weight loss, Eyes: Negative for injury, sp3 pain, redness, and discharge, ENT: Negative for injury, pain, and discharge, Neck: Negative for injury, pain, and swelling, Cardiovascular: Negative for chest pain, palpitations, and edema, Respiratory: Negative for shortness of breath, cough, wheezing, and pleuritic chest pain, Abdomen/GI: Negative for abdominal pain, nausea, vomiting, diarrhea, and constipation, Back: Negative for injury and pain, MS/Extremity: Negative for injury and deformity, Skin: Negative for injury, rash, and discoloration, Neuro: Negative for headache, weakness, numbness, tingling, and seizure, Psych: Negative for depression, anxiety, suicide ideation, homicidal ideation, and hallucinations, Allergy/Immunology: Negative for hives, rash, and allergies, Endocrine: Negative for neck swelling, polydipsia, polyuria, polyphagia, and marked weight changes, Hematologic/Lymphatic: Negative for swollen nodes, abnormal bleeding, and unusual bruising, 08:21 All other systems are negative, Exam: 08:21 Constitutional: This is a well developed, well nourished patient who is awake, alert, sp3 and in no acute distress. Head/Face: Normocephalic, atraumatic. Eyes: Pupils equal round and reactive to light, extra-ocular motions intact. Lids and lashes normal. Conjunctiva and sclera are non-icteric and not injected. Cornea within normal limits. Periorbital areas with no swelling, redness, or edema. Neck: Trachea midline, no thyromegaly or masses palpated, and no cervical lymphadenopathy. Supple, full range of motion without nuchal rigidity, or vertebral point tenderness. No Meningismus. Chest/axilla: Normal chest wall appearance and motion. Nontender with no deformity. No lesions are appreciated. Cardiovascular: Regular rate and rhythm with a normal S1 and S2. No gallops, murmurs, or rubs. Normal PMI, no JVD. No pulse deficits. Respiratory: Lungs have equal breath sounds bilaterally, clear to auscultation and percussion. No rales, rhonchi or wheezes noted. No increased work of breathing, no retractions or nasal flaring. Abdomen/GI: Soft, non-tender, with normal bowel sounds. No distension or tympany. No guarding or rebound. No evidence of tenderness throughout. Skin: Warm, dry with normal turgor. Normal color with no rashes, no lesions, and no evidence of cellulitis. MS/ Extremity: Pulses equal, no cyanosis. Neurovascular intact. Full, normal range of motion. Neuro: Awake and alert, GCS 15, oriented to person, place, time, and situation. Cranial nerves II-XII grossly intact. Motor strength 5/5 in all extremities. Sensory grossly intact. Cerebellar exam normal. Normal gait. Psych: Awake, alert, with orientation to person, place and time. Behavior, mood, and affect are within normal limits. 08:21 : Deferred for ultrasound, Vital Signs: 08:10 BP 145 / 88; Pulse 95; Resp 16; Temp 98.7; Pulse Ox 100% on R/A; Weight 127.01 kg; iw Height 5 ft. 2 in. ; Pain 3/10; 09:31 BP 139 / 82; Pulse 90; Resp 16; Pulse Ox 100% on R/A; mb9 08:10 Body Mass Index 51.21 (127.01 kg, 157.48 cm) iw 08:10 Pain Scale: Adult iw MDM: 08:08 Medical Screening Exam initiated sp3 08:21 Data reviewed: vital signs, nurses notes, lab test result(s), radiologic studies. ED sp3 course: 28-year-old female G3, with lower abdominal pain and vaginal cramping with positive test as noted above. Workup will include ultrasound, laboratory values including quantitative hCG and ABO/Rh. Differential diagnosis includes threatened , in progress/incomplete , ectopic , among others. Disposition pending workup and patient course.. 09:24 ED course: hCG just over 1600 with possible IUP seen. Patient will need repeat blood sp3 work in 48 hours and I will refer her to obstetrics as well. Diagnosis will be threatened AB.. 12/24 08:08 Order name: Abo/rh Typing; Complete Time: 09:08 sp3 12/24 08:08 Order name: Basic Metabolic Panel; Complete Time: 09:08 sp3 12/24 08:08 Order name: CBC with Diff; Complete Time: 09: sp3 12/24 08:08 Order name: Test, Urine; Complete Time: 09:08 sp3 12/24 08:08 Order name: Quantitative Hcg; Complete Time: 09:08 sp3 12/24 08:08 Order name: Urinalysis w/ reflexes; Complete Time: 09:08 sp3 12/24 08:08 Order name: US Transvaginal Ob; Complete Time: 09:24 sp3 12/24 08:08 Order name: IV Saline Lock; Complete Time: 08:28 sp3 12/24 08:08 Order name: Labs collected and sent; Complete Time: : sp3 12/24 08:08 Order name: NPO; Complete Time: 08:13 sp3 Administered Medications: 08:27 Drug: Acetaminophen PO 650 mg PO once Route: PO; mb9 09:20 Follow up: Response: No adverse reaction mb9 Disposition Summary: 12/25/23 09:25 Discharge Ordered Notes: Location: Home sp3 Condition: Stable sp3 Diagnosis - Vaginal bleeding, threatened miscarriage sp3 Followup: sp3 - With: Private Physician - When: Upon discharge from the Emergency Department - Reason: Continuance of care Discharge Instructions: - Discharge Summary Sheet sp3 - Threatened Miscarriage sp3 Forms: - Medication Reconciliation Form sp3 - Antibiotic Education sp3 - Prescription Opioid Use sp3 - Patient Portal Instructions sp3 - Leadership Thank You Letter sp3 Signatures: Dispatcher [employer] Radha Hawthorne RN RN iw Alina Bennett MD MD sp3 Cheyanne Koch RN RN mb9 Corrections: (The following items were deleted from the chart) 08:09 08:09 ABO/RH TYPING+BB.LAB.BRZ ordered. EDMS EDMS 08:09 08:09 BASIC METABOLIC PANEL+C.LAB.BRZ ordered. EDMS EDMS 08:09 08:09 CBC+H.LAB.BRZ ordered. EDMS EDMS 08:09 08:09 Test, Urine+UC.LAB.BRZ ordered. EDMS EDMS 08:09 08:09 QUANTITATIVE HCG+C.LAB.BRZ ordered. EDMS EDMS 08:09 08:09 Urinalysis+U.LAB.BRZ ordered. EDMS EDMS 08:09 08:09 Transvaginal Ob+US.RAD.BRZ ordered. EDMS EDMS
--- NOTE | 2023-12-25 09:26 | ER ---
Nurse's Notes [facility] Name: Guillermina Marie Age: 28 yrs Sex: Female : 1995 Arrival Date: 12/25/2023 Time: 07:59 Bed 15 Private MD: Diagnosis: Vaginal bleeding, threatened miscarriage Presentation: 12/24 08:10 Chief complaint: Patient states: tested positive on home UPT on Dec 21, had US and was iw told she may be too early started bleeding yesterday. Coronavirus screen: At this time, the client does not indicate any symptoms associated with coronavirus-19. Ebola Screen: No symptoms or risks identified at this time. Initial Sepsis Screen: Does the patient meet any 2 criteria? No. Patient's initial sepsis screen is negative. Does the patient have a suspected source of infection? No. Patient's initial sepsis screen is negative. Risk Assessment: Do you want to hurt yourself or someone else? Patient reports no desire to harm self or others. Onset of symptoms was December 24, 2023. 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 - Infectious Disease History:: Denies. - Social history:: Smoking status: Patient denies any tobacco usage or history of. Screenin:29 [facility] ED Fall Risk Assessment (Adult) History of falling in the last 3 months, mb9 including since admission No falls in past 3 months (0 pts) Confusion or Disorientation No (0 pts) Intoxicated or Sedated No (0 pts) Impaired Gait No (0 pts) Mobility Assist Device Used No (0 pt) Altered Elimination No (0 pt) Score/Fall Risk Level 0 - 2 = Low Risk Oriented to surroundings, Maintained a safe environment, Educated pt \T\ family on fall prevention, incl call for assistance when getting out of bed. Abuse screen: Denies threats or abuse. Nutritional screening: No deficits noted. Tuberculosis screening: No symptoms or risk factors identified. Assessment: 08:28 General: Appears in no apparent distress. Behavior is calm, cooperative. Pain: mb9 Complains of pain in pelvis Pain currently is 8 out of 10 on a pain scale. Quality of pain is described as crampy, Pain began suddenly, Is intermittent. Neuro: Ortiz Agitation-Sedation Scale (RASS): 0 - Alert and Calm Level of Consciousness is awake, alert, obeys commands, Oriented to person, place, time, situation, Appropriate for age. Cardiovascular: Patient's skin is warm and dry. Respiratory: Airway is patent Respiratory effort is even, unlabored, Respiratory pattern is regular, symmetrical. GI: Abdomen is round non-distended, Bowel sounds present X 4 quads. Abd is soft Abdomen is tender to palpation in suprapubic area Reports lower abdominal pain, cramping. : Reports vaginal bleeding that is bright red, light flow, spotty. EENT: No signs and/or symptoms were reported regarding the EENT system. Derm: Skin is pink, warm \T\ dry. Musculoskeletal: Range of motion: intact in all extremities. 09:31 Reassessment: Patient and/or family updated on plan of care and expected duration. Pain mb9 level reassessed. Patient is alert, oriented x 3, equal unlabored respirations, skin warm/dry/pink. Patient states feeling better. Patient states symptoms have improved. Vital Signs: 08:10 BP 145 / 88; Pulse 95; Resp 16; Temp 98.7; Pulse Ox 100% on R/A; Weight 127.01 kg; iw Height 5 ft. 2 in. ; Pain 3/10; 09:31 BP 139 / 82; Pulse 90; Resp 16; Pulse Ox 100% on R/A; mb9 08:10 Body Mass Index 51.21 (127.01 kg, 157.48 cm) iw 08:10 Pain Scale: Adult iw ED Course: 08:03 Patient arrived in ED. ra3 08:08 Alina Bennett MD is Attending Physician. sp3 08:11 Triage completed. iw 08:11 Arm band placed on. iw 08:12 Cheyanne Koch RN is Primary Nurse. mb9 08:28 Abo/rh Typing Sent. mb9 08:28 Basic Metabolic Panel Sent. mb9 08:28 CBC with Diff Sent. mb9 08:28 Test, Urine Sent. mb9 08:28 Quantitative Hcg Sent. mb9 08:28 Urinalysis w/ reflexes Sent. 9 08:28 Initial lab(s) drawn, by me, sent to lab. Inserted saline lock: 22 gauge in right mb9 antecubital area, using aseptic technique. Blood collected. Flushed with 10 mL NS. 08:29 Placed in gown. Bed in low position. Call light in reach. Side rails up X 1. Provided mb9 Education on: press call light if needing anything. Client placed on continuous cardiac and pulse oximetry monitoring. NIBP monitoring applied. Door closed. Noise minimized. Warm blanket given. Pillow given. 08:30 No provider procedures requiring assistance completed. mb9 09:06 Transvaginal Ob In Process Unspecified. EDMS 09:31 IV discontinued, intact, bleeding controlled, No redness/swelling at site. Pressure mb9 dressing applied. Administered Medications: 08:27 Drug: Acetaminophen PO 650 mg PO once Route: PO; mb9 09:20 Follow up: Response: No adverse reaction mb9 Medication: 08:30 VIS not applicable for this client. mb9 Outcome: 09:25 Discharge ordered by . sp3 09:32 Discharged to home ambulatory, mb9 09:32 Condition: stable 09:32 Discharge instructions given to patient, Instructed on discharge instructions, follow up and referral plans. Demonstrated understanding of instructions, follow-up care, 09:32 Patient left the ED. mb9 Signatures: Dispatcher [employer] Radha Hawthorne RN RN iw Patel, Setul, MD MD sp3 Cheyanne Koch RN RN mb9 Mattie Dubon ra3
[2023-12-25 09:55] VITALS: TEMP 98.7; O2SAT 100
[2023-12-25 09:56] VITALS: BP 139/82
== END 2023-12-25 09:32 | disposition home or self-care (01) ==
LOC: ER 07:59
DX: O20.0 Threatened abortion (principal)
CPT/HCPCS: 36415; 76817; 80048; 81001; 81025; 84702; 85025; 86900; 86901; 99284

== ENCOUNTER 2023-12-26 09:39 | Emergency (ER) | payer BC ==
[2023-12-26] MEDS ORDERED: NA CHLORIDE 0.9% 1,000 ML ONE (09:51)
[2023-12-26 11:05] LABS: Absolute Eosinophils 0.1 K/uL (0-0.5); Absolute Lymphocytes (CBC) 1.9 K/uL (0.7-4.9); Absolute Monocytes 0.4 K/uL (0.1-1.3); Absolute Neutrophil 2.8 K/uL (1.8-8.0); Basophils % 0.5 % (0-1.3); Eosinophils % 2.4 % (0-4.4); Hematocrit 37.8 % (36.0-45.0); Hemoglobin 12.6 g/dL (12.0-15.0); Lymphocytes % 35.6 % (15.3-44.8); MCH 29.8 pg (27.0-35.0); MCHC 33.2 g/dL (32.0-36.0); MCV 89.7 fL (80-100); MPV 9.3 fL (7.6-11.3); Monocytes % 8.3 % (3.3-12.3); Neutrophils % 53.2 % (41.7-73.7); Platelets 267 thou/uL (152-406); RBC Red Blood Cell Count 4.21 M/uL (3.86-4.86); Red Cell Distribution Width 13.4 % (12.1-15.2)
[2023-12-26 11:06] LABS: Specific Gravity 1.016 (1.005-1.030)
[2023-12-26 11:07] LABS: Specific Gravity 1.016 (1.005-1.030); Sqamous Epithelial <5 /HPF (None Seen); Urine Bacteria None Seen /HPF (<20); Urine Bilirubin NEGATIVE (Negative); Urine Blood 3+ (OVER) (Negative); Urine Clarity Turbid (Clear); Urine Color Light-Yellow (Yellow); Urine Culture Reflex Order NOT NEEDED; Urine Glucose NEGATIVE (Negative); Urine Ketones NEGATIVE (Negative); Urine Microscopic Reflex YN ORDER UMIC; Urine Mucus Slight /HPF (None Seen); Urine Nitrite NEGATIVE (Negative); Urine Protein NEGATIVE (Negative); Urine RBC >50 /HPF (None Seen); Urine Urobilinogen Normal (Normal); Urine WBC None Seen /HPF (<5); Urine pH 6.5 (5.0-7.0)
[2023-12-26 11:38] LABS: Anion Gap 8.6 mEq/L (5.0-15.0); Potassium 3.6 mEq/L (3.5-5.1)
--- NOTE | 2023-12-26 13:10 | RAD REPORT ---
EXAMINATION: US Transvaginal OB. US pelvis complete COMPARISON: 12/25/2023 HISTORY: [facility] MAIN ABD CRAMPING, Bed Name: 6 TECHNIQUE: Real-time ultrasound was performed through the pelvis through both transabdominal and beatty svaginal approaches. A transvaginal scan was performed to better visualize the intrauterine contents and adnexa. FINDINGS: A small cystic structure is seen in the lower uterine segment, with some adjacent hyperechogenic rim which may represent decidual reaction. A small linear structure which may represent a pole measures 1.7 mm. If this represents a gestational sac, its mean diameter is measured at 4.4 mm. Anoth er bilobed cystic structure measuring 5 mm in thickness is seen in the cervical canal, without evidence of solid content. Faint echoes observed along the tiny possible pole, with no discrete heart rate documente d. Both ovaries are visualized. Dominant left ovarian cyst measuring 3.4 cm. Mildly complex fluid seen in the cul-de-sac Measurements and Calculations: Calculated sonographic age of 5 weeks, 1 days based on possible gestational sac mean diameter. IMPRESSION: Cystic structure seen in the lower uterine segment and the cervical canal. Tiny possible pole w ith no discrete cardiac pulsations within the lower uterine segment component. This component measures up to 4.4 mm in mean diameter, which would correspond to a gestational age of 5 weeks and 1 day if this truly represents a gestational sac. Alternatively, this may relate to incomplete . Close clinical follow-up, serial beta hCG trending, and consideration of short-term sonogra phic follow-up in 7-10 days are recommended.
--- NOTE | 2023-12-26 14:14 | EDPHYS ---
Physician Documentation [facility] Name: Guillermina Marie Age: 28 yrs Sex: Female : 1995 Arrival Date: 12/26/2023 Time: 09:39 Bed 20 Private MD: Lew Steinberg HPI: 12/25 14:07 This 28 yrs old Female presents to ER via Ambulatory with complaints of 3-4 rebekah wks preg vag bleeding. 14:07 The patient presents with vaginal discharge. Onset: The symptoms/episode began/occurred rebekah 2 day(s) ago. Modifying factors: The symptoms are alleviated by nothing, the symptoms are aggravated by nothing. Associated signs and symptoms: The patient has no apparent associated signs or symptoms. Severity of symptoms: At their worst the symptoms were mild, moderate, in the emergency department the symptoms are unchanged. The patient presents to the emergency department with vaginal bleeding, that is moderate. The estimated gestational age is 5 weeks. course: care: none. Associated signs and symptoms: The patient has no apparent associated signs or symptoms. The patient has not experienced similar symptoms in the past. 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 - Infectious Disease History:: Denies. - Social history:: Smoking status: Patient denies any tobacco usage or history of. - Family history:: not pertinent. ROS: 14:07 Constitutional: Negative for fever, chills, and weight loss, Eyes: Negative for injury, rebekah pain, redness, and discharge, ENT: Negative for injury, pain, and discharge, Neck: Negative for injury, pain, and swelling, Cardiovascular: Negative for chest pain, palpitations, and edema, Respiratory: Negative for shortness of breath, cough, wheezing, and pleuritic chest pain, Abdomen/GI: Negative for abdominal pain, nausea, vomiting, diarrhea, and constipation, Back: Negative for injury and pain, MS/Extremity: Negative for injury and deformity, Skin: Negative for injury, rash, and discoloration, Neuro: Negative for headache, weakness, numbness, tingling, and seizure, Psych: Negative for depression, anxiety, suicide ideation, homicidal ideation, and hallucinations, Allergy/Immunology: Negative for hives, rash, and allergies, Endocrine: Negative for neck swelling, polydipsia, polyuria, polyphagia, and marked weight changes, Hematologic/Lymphatic: Negative for swollen nodes, abnormal bleeding, and unusual bruising, 14:07 : Positive for vaginal bleeding, Exam: 14:07 Constitutional: This is a well developed, well nourished patient who is awake, alert, rebekah and in no acute distress. Head/Face: Normocephalic, atraumatic. Eyes: Pupils equal round and reactive to light, extra-ocular motions intact. Lids and lashes normal. Conjunctiva and sclera are non-icteric and not injected. Cornea within normal limits. Periorbital areas with no swelling, redness, or edema. ENT: Nares patent. No nasal discharge, no septal abnormalities noted. Tympanic membranes are normal and external auditory canals are clear. Oropharynx with no redness, swelling, or masses, exudates, or evidence of obstruction, uvula midline. Mucous membranes moist. Neck: Trachea midline, no thyromegaly or masses palpated, and no cervical lymphadenopathy. Supple, full range of motion without nuchal rigidity, or vertebral point tenderness. No Meningismus. Cardiovascular: Regular rate and rhythm with a normal S1 and S2. No gallops, murmurs, or rubs. Normal PMI, no JVD. No pulse deficits. Respiratory: Lungs have equal breath sounds bilaterally, clear to auscultation and percussion. No rales, rhonchi or wheezes noted. No increased work of breathing, no retractions or nasal flaring. Abdomen/GI: Soft, non-tender, with normal bowel sounds. No distension or tympany. No guarding or rebound. No evidence of tenderness throughout. Back: No spinal tenderness. No costovertebral tenderness. Full range of motion. Skin: Warm, dry with normal turgor. Normal color with no rashes, no lesions, and no evidence of cellulitis. MS/ Extremity: Pulses equal, no cyanosis. Neurovascular intact. Full, normal range of motion. Neuro: Awake and alert, GCS 15, oriented to person, place, time, and situation. Cranial nerves II-XII grossly intact. Motor strength 5/5 in all extremities. Sensory grossly intact. Cerebellar exam normal. Normal gait. Psych: Awake, alert, with orientation to person, place and time. Behavior, mood, and affect are within normal limits. 14:07 : CVA tenderness, is absent, Pelvic Exam: is not necessary for this patient, Sexual behavior: the patient is sexually active, and reports a single partner, Vital Signs: 09:54 BP 127 / 77; Pulse 98; Resp 16; Temp 98.3(TE); Pulse Ox 98% on R/A; Weight 127.01 kg; ss Height 5 ft. 2 in. ; Pain 6/10; 15:00 BP 133 / 6; Pulse 91; Resp 18; Pulse Ox 96% ; cm10 09:54 Body Mass Index 51.21 (127.01 kg, 157.48 cm) ss 09:54 Pain Scale: Adult ss MDM: 09:41 Medical Screening Exam initiated rebekah 14:11 Differential diagnosis: ectopic , postcoital bleeding, ruptured ectopic rebekah , vaginosis. Data reviewed: vital signs, nurses notes, lab test result(s), radiologic studies, ultrasound. Consideration of Admission/Observation Escalation of care including admission/observation considered. I considered the following discharge prescriptions or medication management in the emergency department Medications were administered in the Emergency Department. See MAR. Independent interpretation of the following test(s) in the Emergency Department Radiology Department Ultrasound: My interpretation is usg pelvis. Test considered but Not performed: MRI: no mri. Historians other than the Patient: pt spouse. Care significantly affected by the following chronic conditions: none. 12/25 09:45 Order name: Abo/rh Typing; Complete Time: 12:40 [facility] 12/25 09:45 Order name: Basic Metabolic Panel; Complete Time: 12:40 [facility] 12/25 09:45 Order name: CBC with Diff; Complete Time: 12:40 [facility] 12/25 09:45 Order name: Test, Urine; Complete Time: 12:40 [facility] 12/25 09:45 Order name: Quantitative Hcg; Complete Time: 12:40 [facility] 12/25 09:45 Order name: Urinalysis w/ reflexes; Complete Time: 12:40 [facility] 12/25 09:45 Order name: US Transvaginal Ob; Complete Time: 14:07 [facility] 12/25 10:56 Order name: Pelvis Complete; Complete Time: 14:07 EDMS 12/25 09:45 Order name: IV Saline Lock; Complete Time: 10:55 [facility] 12/25 09:45 Order name: Labs collected and sent; Complete Time: 10:55 [facility] 12/25 09:45 Order name: NPO; Complete Time: 09:49 [facility] Administered Medications: 10:55 Drug: NS 0.9% IV 1000 ml IV at 1000 ml once; to be given as a bolus over 60 minutes cm10 Route: IV; Rate: 1000 ml; Site: right antecubital; 14:05 Follow up: Response: No adverse reaction; IV Status: Completed infusion; IV Intake: cm10 1000ml Disposition Summary: 12/26/23 14:14 Discharge Ordered Notes: Location: Home [facility] Problem: new rebekah Symptoms: have improved rebekah Condition: Stable rebekah Diagnosis - Threatened rebekah Followup: rebekah - With: Private Physician - When: 2 - 3 days - Reason: Recheck today's complaints, Continuance of care, Re-evaluation by your physician Discharge Instructions: - Discharge Summary Sheet rebekah - Care rebekah - Threatened Miscarriage rebekah - Vaginal Bleeding During , First Trimester rebekah - First Trimester of , [id number] rebekah - First Trimester of rebekah - Threatened Miscarriage, [id number] rebekah - Vaginal Bleeding During , First Trimester, Uruy-hs-Cjan [facility] Forms: - Medication Reconciliation Form rebekah - Antibiotic Education rebekah - Prescription Opioid Use rebekah - Patient Portal Instructions rebekah - Leadership Thank You Letter rebekah Signatures: Dispatcher [employer] Lew Bradley MD MD cha Blanchard, Shelby, CORY RN Nancy Jim RN RN cm10 Corrections: (The following items were deleted from the chart) 09:45 09:45 ABO/RH TYPING+BB.LAB.BRZ ordered. EDMS EDMS 09:45 09:45 BASIC METABOLIC PANEL+C.LAB.BRZ ordered. EDMS EDMS 09:45 09:45 CBC+H.LAB.BRZ ordered. EDMS EDMS 09:45 09:45 Test, Urine+UC.LAB.BRZ ordered. EDMS EDMS 09:45 QUANTITATIVE HCG+C.LAB.BRZ ordered. EDMS EDMS 09:45 Urinalysis+U.LAB.BRZ ordered. EDMS EDMS
--- NOTE | 2023-12-26 14:14 | ER ---
Nurse's Notes [facility] Name: Guillermina Marie Age: 28 yrs Sex: Female : 1995 Arrival Date: 12/26/2023 Time: 09:39 Bed 20 Private MD: Diagnosis: Threatened Presentation: 12/25 09:54 Chief complaint: Patient states: seen in ER yesterday for vaginal bleeding. Was told ss that her and very early and that she may be having a miscarriage. Pt reports heavier vaginal bleeding today with abd cramping. Coronavirus screen: Client denies travel out of the [place] in the last 14 days. Ebola Screen: Patient denies exposure to infectious person. Patient denies travel to an Ebola-affected area in the 21 days before illness onset. Initial Sepsis Screen: Does the patient meet any 2 criteria? No. Patient's initial sepsis screen is negative. Does the patient have a suspected source of infection? No. Patient's initial sepsis screen is negative. Risk Assessment: Do you want to hurt yourself or someone else? Patient reports no desire to harm self or others. Onset of symptoms was December 25, 2023. 09:54 Method Of Arrival: Ambulatory ss 09:54 Acuity: NADIRA 3 ss Triage Assessment: 09:56 General: Appears uncomfortable, Behavior is calm, cooperative. Neuro: Level of ss Consciousness is awake, alert, obeys commands, Oriented to person, place, time, situation, Speech is normal. Respiratory: Airway is patent Respiratory effort is even, unlabored, Respiratory pattern is regular, symmetrical. Derm: Skin is pink, warm \T\ dry. normal. PEDIATRIC RADIOLOGIST: 09:55 LMP N/A - Irregular menses, Not ss 14:07 3, Full Term 2, Premature 0, 0, Living 2, unknown rebekah 14:07 3, Full Term 2, Premature 0, 0, Living 2, unknown rebekah 14:07 3, Full Term 2, Premature 0, 0, Living 2, unknown rebekah Historical: - Allergies: 09:55 Amoxicillin; ss 09:55 PENICILLINS; ss - Home Meds: 09:55 None [Active]; ss - PSHx: 09:55 section; ss - Immunization history:: Client reports having NOT received the Covid vaccine. - Infectious Disease History:: Denies. - Social history:: Smoking status: Patient denies any tobacco usage or history of. - Family history:: not pertinent. Screenin:01 [facility] ED Fall Risk Assessment (Adult) History of falling in the last 3 months, cm10 including since admission No falls in past 3 months (0 pts) Confusion or Disorientation No (0 pts) Intoxicated or Sedated No (0 pts) Impaired Gait No (0 pts) Mobility Assist Device Used No (0 pt) Altered Elimination No (0 pt) Score/Fall Risk Level 0 - 2 = Low Risk Oriented to surroundings, Maintained a safe environment, Hourly rounding (assess needs \T\ fall precautionary measures) done. Abuse screen: Denies threats or abuse. Denies injuries from another. Nutritional screening: No deficits noted. Tuberculosis screening: No symptoms or risk factors identified. Assessment: 10:30 General: Appears in no apparent distress. comfortable, Behavior is calm, cooperative. cm10 Pain: Complains of pain in abdomen Quality of pain is described as crampy. Neuro: No deficits noted. Level of Consciousness is awake, alert, obeys commands, Oriented to person, place, time, situation, Appropriate for age. Respiratory: No deficits noted. Airway is patent Respiratory effort is even, unlabored, Respiratory pattern is regular, symmetrical. : Reports vaginal bleeding that is bright red, with clots. 15:00 Reassessment: Patient appears in no apparent distress at this time. No changes from cm10 previously documented assessment. Patient and/or family updated on plan of care and expected duration. Pain level reassessed. Patient is alert, oriented x 3, equal unlabored respirations, skin warm/dry/pink. Vital Signs: 09:54 BP 127 / 77; Pulse 98; Resp 16; Temp 98.3(TE); Pulse Ox 98% on R/A; Weight 127.01 kg; Height 5 ft. 2 in. ; Pain 6/10; 15:00 BP 133 / 6; Pulse 91; Resp 18; Pulse Ox 96% ; cm10 09:54 Body Mass Index 51.21 (127.01 kg, 157.48 cm) ss 09:54 Pain Scale: Adult ss ED Course: 09:41 Patient arrived in ED. ra3 09:41 Lew Cisneros MD is Attending Physician. [facility] 09:55 Triage completed. 09:55 Arm band placed on right wrist. 10:20 Nancy Chandra, RN is Primary Nurse. cm10 10:30 Patient has correct armband on for positive identification. Placed in gown. Bed in low cm10 position. Call light in reach. Side rails up X2. Provided Education on: ER process and procedures.. Pulse ox on. NIBP on. 10:36 US Transvaginal Ob In Process Unspecified. EDMS 10:55 Abo/rh Typing Sent. cm10 10:55 Basic Metabolic Panel Sent. cm10 10:55 CBC with Diff Sent. cm10 10:55 Test, Urine Sent. cm10 10:55 Quantitative Hcg Sent. cm10 10:55 Urinalysis w/ reflexes Sent. cm10 10:56 Pelvis Complete In Process Unspecified. EDMS 10:56 Initial lab(s) drawn, by pr, sent to lab. Urine collected: clean catch specimen, cm10 cloudy. Inserted saline lock: 20 gauge in right antecubital area, using aseptic technique. Blood collected. Flushed with 10 mL NS. 15:01 No provider procedures requiring assistance completed. IV discontinued, intact, cm10 bleeding controlled, No redness/swelling at site. Pressure dressing applied. Administered Medications: 10:55 Drug: NS 0.9% IV 1000 ml IV at 1000 ml once; to be given as a bolus over 60 minutes cm10 Route: IV; Rate: 1000 ml; Site: right antecubital; 14:05 Follow up: Response: No adverse reaction; IV Status: Completed infusion; IV Intake: cm10 1000ml Medication: 15:02 VIS not applicable for this client. cm10 Intake: 14:05 IV: 1000ml; Total: 1000ml. cm10 Outcome: 14:14 Discharge ordered by . [facility] 15:01 Discharged to home ambulatory, cm10 15:01 Condition: good 15:01 Discharge instructions given to patient, Instructed on discharge instructions, follow up and referral plans. Demonstrated understanding of instructions, follow-up care, 15:02 Patient left the ED. cm10 Signatures: Dispatcher [employer] Lew Bradley MD MD cha Blanchard, Shelby, RN RN Nancy Chandra, RN RN cm10 Mattie Dubon ra3
[2023-12-26 15:24] VITALS: TEMP 98.3
[2023-12-26 15:26] VITALS: BP 133/6; O2SAT 96
== END 2023-12-26 15:02 | disposition home or self-care (01) ==
LOC: ER 09:39
DX: O20.0 Threatened abortion (principal); Z3A.01 Less than 8 weeks gestation of pregnancy
CPT/HCPCS: 85025; 81001; 80048; 36415; 86900; 81025; 86901; 84702; 76856; 76817; J7030; 96360; 96361; 99284